=== PATIENT | male | born 1955 | race Caucasian/White ===

== ENCOUNTER 2020-12-10 21:48 | Emergency (ER) | payer MEDICARE ==
[~2020-12-10] VITALS: Ht 180.3 cm; Wt 45.5 kg
[~2020-12-10 21:48] MED LIST: ASPI325T OR; DIABETA; EFFE75CA75 OR; FLEXERIL OR; FLEXERIL PO; GEMF600T OR; GLUC500T OR; GLYB1TAB29 OR; HYDR25TA6 OR; INSULANT SC; INSULIN LANTUS SUBQ; KEPPRA OR; KEPPRA PO; LEVETIRACETAM PO; LISI40TA OR; LOPI600T OR; NOVALOG INSULIN; POTA-77 PO; POTA20TA2 OR; RISP2TAB12 OR; SERO1TAB OR; VARDENAFIL PO; VENLAFAXINE PO; VIT D 4000 PO
[2020-12-10 23:29] LABS: BASO % 0.4 % (0.0-1.0); EOS % 0.5 % (0.0-3.0); HEMATOCRIT 43.7 % (42.0-52.0); HEMOGLOBIN 15.8 g/dl (13.5-17.5); LYMPH # 1.3 10^3/uL (1.5-5.0); LYMPH % 16.1 % (24.0-44.0); MEAN CORPUSCULAR HEMOGLOBIN 32.4 pg (27.0-33.0); MEAN CORPUSCULAR HGB CONC 36.2 g/dl (32.0-36.5); MEAN CORPUSCULAR VOLUME 89.5 fl (80.0-96.0); MONO # 0.9 10^3/uL (0.0-0.8); MONO % 11.1 % (2.0-8.0); NEUTROPHILS # 5.8 10^3/uL (1.5-8.5); NEUTROPHILS % 71.5 % (36.0-66.0); PLATELET COUNT, AUTOMATED 160 10^3/uL (150-450); RED BLOOD COUNT 4.88 10^6/uL (4.30-6.10); WHITE BLOOD COUNT 8.1 10^3/uL (4.0-10.0)
[2020-12-11 01:19] LABS: BLOOD UREA NITROGEN 60 MG/DL (7-18); CALCIUM LEVEL 8.2 MG/DL (8.8-10.2); CARBON DIOXIDE LEVEL 20 MEQ/L (21-32); CHLORIDE LEVEL 98 MEQ/L (98-107); CK-MB VALUE MASS 7.8 NG/ML (<3.6); CPK CREATINE PHOSPHOKINASE 742 U/L (39-308); CREATININE FOR GFR 2.17 MG/DL (0.70-1.30); GLOMERULAR FILTRATION RATE 32.6 (>49); GLUCOSE, FASTING 241 MG/DL (70-100); MB/CK RELATIVE INDEX 1.05 (< OR =4); POTASSIUM SERUM 5.5 MEQ/L (3.5-5.1); SODIUM LEVEL 130 MEQ/L (136-145); TROPONIN I < 0.02 NG/ML (< 0.10)
[2020-12-11] MEDS ORDERED: NS 1,000 ML IV ONE (01:25)
[2020-12-11 04:15] VITALS: BP 124/60
--- NOTE | 2020-12-11 16:59 | ECGEPIP ---
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
== END 2020-12-11 09:09 | disposition home or self-care (01) ==
LOC: M ED 21:48
DX: G89.29 Other chronic pain (principal); M54.5 Low back pain; E11.9 Type 2 diabetes mellitus without complications; N18.9 Chronic kidney disease, unspecified; Z79.899 Other long term (current) drug therapy; Z79.82 Long term (current) use of aspirin; F17.210 Nicotine dependence, cigarettes, uncomplicated

== ENCOUNTER 2021-02-23 14:25 | Inpatient (IN) | payer MEDICARE ==
[~2021-02-23] VITALS: Ht 182.9 cm; Wt 86.9 kg
[2021-02-23] MEDS ORDERED: NS 1,000 ML IV SCH (14:50)
--- NOTE | 2021-02-23 15:06 | REP ---
INDICATION: Altered Mental Status COMPARISON: 03/21/2007 TECHNIQUE: Axial noncontrast images from the skull base to the thoracic inlet with coronal reformations. This CT examination was performed using the following dose reduction techniques: Automated exposure control, adjustment of mA and/or kv according to the patient's size, and use of iterative reconstruction technique. FINDINGS: Atrophy with periventricular leukomalacia and microvascular ischemic changes are appreciated. The ventricles and sulci are symmetric. Juarez-white differentiation is maintained. There is no evidence for acute intracranial hemorrhage, mass/mass effect, pathology or infarction. No extra-axial fluid collection. Calvarium is intact. Paranasal sinuses and mastoid air cells are clear. IMPRESSION: Atrophy and microvascular ischemic changes. No acute intracranial hemorrhage, infarction, or mass/mass effect. <Electronically signed by Aayush Corrigan > 02/23/21 [id number]
[2021-02-23 15:35] LABS: VENOUS BASE EXCESS -6.7 (-2.0-2.0); VENOUS HCO3 19.6 MEQ/L (23.0-27.0); VENOUS O2 SATURATION 48.9 % (60.0-80.0); VENOUS PARTIAL PRESSURE CO2 42.1 mmHg (38.0-50.0); VENOUS PARTIAL PRESSURE O2 29.7 mmHg (30.0-50.0); VENOUS PH 7.286 UNITS (7.330-7.430); VENOUS STANDARD HCO3 17.9 MEQ/L; VENOUS TOTAL CO2 20.9 MEQ/L (24.0-28.0)
[2021-02-23 15:39] LABS: HEMATOCRIT 45.3 % (42.0-52.0); HEMOGLOBIN 15.5 g/dl (13.5-17.5); MEAN CORPUSCULAR HGB CONC 34.2 g/dl (32.0-36.5); MEAN CORPUSCULAR VOLUME 90.6 fl (80.0-96.0); PLATELET COUNT, AUTOMATED 277 10^3/uL (150-450)
[2021-02-23] MEDS ORDERED: cefTRIAXone SOD 2 GM in D5W MINI-BAG PLUS 50 ML IV ONE (15:45)
--- NOTE | 2021-02-23 15:46 | REP ---
INDICATION: fall COMPARISON: None. TECHNIQUE: Axial noncontrast images from the skull base to the thoracic inlet with coronal and sagittal re-formations This CT examination was performed using the following dose reduction techniques: Automated exposure control, adjustment of mA and/or kv according to the patient's size, and use of iterative reconstruction technique. FINDINGS: Alignment and lordosis maintained. No acute fracture/compression injury or subluxation. Posterior elements and spinous processes are intact. Advanced multilevel degenerative changes include endplate sclerosis, disc space narrowing, osteophytosis and facet hypertrophy. Spinal canal appears patent. Paravertebral soft tissues are grossly normal IMPRESSION: 1. No evidence for acute fracture/compression injury or subluxation. 2. Advanced multilevel degenerative spondylosis. <Electronically signed by Aayush Corrigan > 02/23/21 2175
[2021-02-23 16:02] LABS: ATYPICAL LYMPH 3 % (0-5); LYMPHOCYTES 6 % (16-44); MONOCYTES 7 % (0-5); NEUTROPHILS 82 % (28-66); OSMOLALITY SERUM 324 MOSM/KG (280-301)
[2021-02-23 16:04] LABS: PLATELET ESTIMATE NORMAL (NORMAL); TOXIC VACUOLATION 1+
[2021-02-23 16:07] LABS: RSV AMPLIFICATION NEGATIVE (NEGATIVE)
[2021-02-23 16:25] LABS: ACETAMINOPHEN LEVEL < 2.0 UG/ML (10.0-30.0); ALT/SGPT 34 U/L (12-78); BILIRUBIN,DIRECT 0.2 MG/DL (0.0-0.2); BILIRUBIN,TOTAL 0.5 MG/DL (0.2-1.0); BLOOD UREA NITROGEN 50 MG/DL (7-18); CALCIUM LEVEL 9.6 MG/DL (8.8-10.2); CARBON DIOXIDE LEVEL 22 MEQ/L (21-32); CHLORIDE LEVEL 99 MEQ/L (98-107); CK-MB VALUE MASS 4.2 NG/ML (<3.6); CPK CREATINE PHOSPHOKINASE 1650 U/L (39-308); CREATININE FOR GFR 2.83 MG/DL (0.70-1.30); ETHYL ALCOHOL (ETHANOL) < 0.003 % (0.000-0.010); GLUCOSE, FASTING 627 MG/DL (70-100); MB/CK RELATIVE INDEX 0.25 (< OR =4); POTASSIUM SERUM 4.6 MEQ/L (3.5-5.1); SALICYLATE LEVEL 3.5 MG/DL (5.0-30.0); SODIUM LEVEL 133 MEQ/L (136-145); TOTAL PROTEIN 7.4 GM/DL (6.4-8.2); TROPONIN I 0.11 NG/ML (< 0.10)
[2021-02-23] MEDS ORDERED: NS IV ONE (16:35)
[2021-02-23] MEDS ORDERED: INSULIN REGULAR IN 0.9 % NACL 100 UNIT in IV 1 EA IV SCH ×2 (16:40)
[2021-02-23] MEDS ORDERED: INSULIN IV RATE CHANGE DOCUMENTATION ML/HR XX SCH (16:40)
[2021-02-23] MEDS ORDERED: METOPROLOL 5 MG/5 ML VIAL IV STA (16:54)
--- NOTE | 2021-02-23 17:06 | REP ---
INDICATION: leukocytosis COMPARISON: 06/15/2010 TECHNIQUE: Portable AP view of the chest FINDINGS: The mediastinum and cardiac silhouette are stable and within normal limits for portable technique. The lung soliman demonstrate chronic appearing changes without acute consolidation, effusion, or pneumothorax. Skeletal structures are intact. IMPRESSION: No acute cardiopulmonary process appreciated. <Electronically signed by Aayush Corrigan > 02/23/21 1427
[2021-02-23 17:56] LABS: AMPHETAMINES LEVEL URINE NEGATIVE (NEGATIVE); BARBITURATES URINE NEGATIVE (NEGATIVE); BENZODIAZEPINES URINE NEGATIVE (NEGATIVE); CANNABINOIDS URINE NEGATIVE (NEGATIVE); COCAINE METABOLITE URINE NEGATIVE (NEGATIVE); METHADONE URINE NEGATIVE (NEGATIVE); OPIATES URINE NEGATIVE (NEGATIVE); PHENCYCLIDINE URINE NEGATIVE (NEGATIVE)
--- NOTE | 2021-02-23 18:17 | REPVR ---
PROCEDURE INFORMATION: Exam: CT Chest Without Contrast; Diagnostic Exam date and time: 02/23/2021 5:39 PM Age: 65 years old Clinical indication: Other: Leukocytosis TECHNIQUE: Imaging protocol: Diagnostic computed tomography of the chest without contrast. Radiation optimization: All CT scans at this facility use at least one of these dose optimization techniques: automated exposure control; mA and/or kV adjustment per patient size (includes targeted exams where dose is matched to clinical indication); or iterative reconstruction. COMPARISON: 1. CR Chest, 1 view 2021-02-23 16:[address] Spine,cervical w/o contrast 2021-02-23 15:29 FINDINGS: Lungs: Minimal right lung base subsegmental atelectasis. Pleural spaces: Unremarkable. No pneumothorax. No pleural effusion. Heart: Unremarkable. No cardiomegaly. No pericardial effusion. Mediastinal space: Prominent esophageal thickening, correlate. Aorta: Unremarkable. No aortic aneurysm. Lymph nodes: Unremarkable. No enlarged lymph nodes. Bones/joints: Unremarkable. No acute fracture. Soft tissues: Unremarkable. IMPRESSION: Prominent esophageal thickening, correlate. Electronically signed by: Luis Antonio Douglas On 02/23/2021 18:17:06 PM
--- NOTE | 2021-02-23 18:20 | REPVR ---
PROCEDURE INFORMATION: Exam: CT Abdomen And Pelvis Without Contrast Exam date and time: 02/23/2021 5:39 PM Age: 65 years old Clinical indication: Other: Leukocytosis TECHNIQUE: Imaging protocol: Computed tomography of the abdomen and pelvis without contrast. Radiation optimization: All CT scans at this facility use at least one of these dose optimization techniques: automated exposure control; mA and/or kV adjustment per patient size (includes targeted exams where dose is matched to clinical indication); or iterative reconstruction. COMPARISON: CR Chest, 1 view 2021-02-23 16:54 FINDINGS: Limitations: Motion artifact does moderately limit the sensitivity of this examination. Artifact related to patient's arm position limits evaluation. Liver: Normal. No mass. Gallbladder and bile ducts: Normal. No calcified stones. No ductal dilation. Pancreas: Normal. No ductal dilation. Spleen: Normal. No splenomegaly. Adrenal glands: Normal. No mass. Kidneys and ureters: Moderate right hydroureter and hydronephrosis. Right perinephric stranding and renal swelling. Correlate for accompanying cystitis and pyelonephritis. Stomach and bowel: Unremarkable. No obstruction. No mucosal thickening. Appendix: No evidence of appendicitis. Intraperitoneal space: Unremarkable. No free air. No significant fluid collection. Retroperitoneal space: Mild stranding extending along the right retroperitoneum and ureter. Vasculature: Ill-defined soft tissue adjacent to the right internal iliac artery measuring 4 x 2.2 x 4.5 cm, (series 206, image 74) consider follow-up. Lymph nodes: Question adenopathy or other lesion or neoplasm. Urinary bladder: 2 mm dependent calculus in the bladder, likely recently passed. Reproductive: Unremarkable as visualized. Bones/joints: Right hip ORIF. Soft tissues: Unremarkable. IMPRESSION: 1. Moderate right hydroureter and hydronephrosis. Right perinephric stranding and renal swelling. 2 mm dependent calculus in the bladder, likely recently passed. Correlate for accompanying cystitis and pyelonephritis. 2. Ill-defined soft tissue adjacent to the right internal iliac artery measuring 4 x 2.2 x 4.5 cm, (series 206, image 74) consider follow-up. Question adenopathy or other lesion or neoplasm. Electronically signed by: Luis Antonio Douglas On 02/23/2021 18:20:29 PM
[2021-02-23] MEDS ORDERED: GLUCOSE 4GM CHEW TABLET PO PRN (18:45)
[2021-02-23] MEDS ORDERED: GLUCAGON INJ 1MG VIAL SC PRN (18:45)
[2021-02-23] MEDS ORDERED: DEXTROSE 50% 50 ML SYRINGE IV PRN (18:45)
[2021-02-23] MEDS ORDERED: ATIV1TAB10 PO (19:14)
[2021-02-23] MEDS ORDERED: POTA10TA17 PO (19:14)
[2021-02-23] MEDS ORDERED: BAYE325T12 PO (19:14)
[2021-02-23] MEDS ORDERED: GABA-282 PO (19:14)
[2021-02-23] MEDS ORDERED: FENO145T7 PO (19:14)
[2021-02-23] MEDS ORDERED: CYCL5TAB PO (19:14)
[2021-02-23] MEDS ORDERED: LISI40TA4 PO (19:14)
[2021-02-23] MEDS ORDERED: DOCU100C16 PO (19:14)
[2021-02-23] MEDS ORDERED: OZEM2INJ SC (19:14)
[2021-02-23] MEDS ORDERED: METF10004 PO (19:14)
[2021-02-23] MEDS ORDERED: KEPP1TAB PO (19:14)
[2021-02-23] MEDS ORDERED: ATOR40TA75 PO (19:14)
[2021-02-23] MEDS ORDERED: OMEGCAP4 PO (19:14)
[2021-02-23] MEDS ORDERED: LANTINJ4 SC (19:14)
[2021-02-23] MEDS ORDERED: VENL150C43 PO (19:14)
[2021-02-23] MEDS ORDERED: BUSP10TA PO (19:14)
[2021-02-23] MEDS ORDERED: HOME MED LIST COMPLETE! XX SCH (19:15)
[2021-02-23] MEDS ORDERED: LEVEMIR (INSULIN DETEMIR) 1 UNITS/0.01ML SC ONE (19:30)
[2021-02-23] MEDS ORDERED: LORazepam 0.5 MG TAB PO PRN (19:35)
[2021-02-23] MEDS ORDERED: THIAMINE 200MG 2ML VIAL IV ONE (19:35)
[2021-02-23] MEDS: NS 1,000 ML IV SCH (19:42)
--- NOTE | 2021-02-23 19:48 | HPEPDOC ---
General Date of Admission Feb 23, 2021 at 18:45 Date of Service: Feb 23, 2021 Other Providers [facility] Attending Physician: Rene Browne MD Chief Complaint The patient is a 65-year-old male admitted with a reason for visit of Altered Mental Status,Uncontrolled Diabetes Type 2. Source: RN/, Old records Exam Limitations: Clinical conditions (the patient is unable to give cogent verbal response) Timing/Duration: Unsure Associated Symptoms: Unobtainable History of Present Illness This history is limited by the patient's current mental status. This history was patched together from EMS, discussions with the ER physician, and review of his old records. Mr. Ba lives [place] community and has apparently been having some difficulty with his IADLs recently as EMS has had to be dispatched to his house several times to help with things like falls. Per his neighbor he was on a table trying to adjust a sun umbrella yesterday when he fell off the table. He was able to get up and he called and spoke to someone (maybe a relative) about this and said he was going to bed at 3 pm the afternoon before admission. His neighbors didn't see him around his apartment today, so by this afternoon they called and asked EMS to do a safety check. He was found in his bed responsive, but not coherent. He was brought to the [facility] ER for further evaluation and treatment. There was a concern raised at one point that he may be taking too much ga bapentin or Flexeril, but it is not clear who raised this concern or if there is any evidence to support this concern. Home Medications Scheduled Aspirin (Aspirin) 325 Mg Tablet, 325 MG PO DAILY, (Reported) Atorvastatin Calcium (Atorvastatin Calcium) 40 Mg Tablet, 40 MG PO DAILY, (Reported) Buspirone HCl (Buspirone HCl) 10 Mg Tablet, 20 MG PO TID, (Reported) Fenofibrate Nanocrystallized (Fenofibrate) 145 Mg Tablet, 145 MG PO DAILY, (Reported) Gabapentin (Gabapentin) 300 Mg Capsule, 600 MG PO TID, (Reported) Insulin Glargine,Hum.rec.anlog (Lantus Solostar) 100 Unit/1 Ml Insuln.pen, 30 UNITS SC QHS, (Reported) Levetiracetam (Keppra) 500 Mg Tablet, 500 MG PO BID, (Reported) Lisinopril (Lisinopril) 40 Mg Tablet, 40 MG PO DAILY, (Reported) Metformin HCl (Metformin HCl) 1,000 Mg Tablet, 1,000 MG PO BID, (Reported) Bells-3/Dha/Epa/Fish Oil (Bells-3 Fish Oil 1,000 mg Sfgl) 1,000 Mg Capsule, 2,000 MG PO DAILY, (Reported) Potassium Chloride (Potassium Chloride) 10 Meq Tab.er.prt, 10 MEQ PO DAILY, (Reported) Semaglutide (Ozempic) 0.25 Mg/0.2 Ml Pen.injctr, 0.25 MG SC 1XWK, (Reported) 0.25 MG WEEKLY FOR 4 WEEKS THEN INCREASE TO 0.5MG WEEKLY Venlafaxine HCl (Venlafaxine HCl ER) 150 Mg Cap.er.24h, 150 MG PO DAILY, (Reported) Scheduled PRN Cyclobenzaprine HCl (Cyclobenzaprine HCl) 5 Mg Tablet, 5 MG PO Q8H PRN for MUSC LE SPASMS, (Reported) Docusate Sodium (Docusate Sodium) 100 Mg Capsule, 100 MG PO BID PRN for CONSTIPATION, (Reported) Lorazepam (Ativan) 0.5 Mg Tablet, 0.5 MG PO BID PRN for ANXIETY, (Reported) Allergies Coded Allergies: simvastatin (Verified Allergy, Unknown, 02/23/21) Past Medical History Medical History (This history is derived from an admission done in 2010 and is probably not complete, however, it is the best information we have right now). 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 3) seizure disorder 4) history of alcohol abuse 5) history of tobacco abuse Surgical History Repair of right femur fracture Family History Father had emphysema and diabetes Social History * Smoker: other (we know he smoked in the past they don't know whether he is still or not.) Alcohol: other (he notes he had a history of heavy alcohol use in the past, I don't know whether he currently does or not) He lives in some sort of jail housing [facility] History Current/History of A-Fib/PAF?: No Current PO Anticoag Therapy: No Review of Systems Other systems Unobtainable Physical Examination General Exam: Positive: No Acute Distress (laying calmly in an ER stretcher when I entered the room); Negative: Alert, Cooperative Eye Exam: Positive: PERRLA, EOMI; Negative: Sclera icteric, Ptosis ENT Exam: Positive: Mucous membr. moist/pink; Negative: Atraumatic Neck Exam: Positive: Supple; Negative: Lymphadenopathy Chest Exam: Positive: Clear to auscultation, Diminished Heart Exam: Positive: Tachycardic, Regular Rhythm (difficult to tell based on the rate) Telemetry: Positive: Tachycardia (was in the 140s on admission, now in the 120s after hydration) Abdomen Exam: Positive: BS Hypoactive, Soft; Negative: Tenderness, Hepatospenomegaly Extremity Exam: Positive: Other (venous stasis dermatitis the lower legs bilaterally and some abrasions with dry eschar noted on his feet (present on admission)); Negative: Edema, Tenderness Skin Exam: Negative: Breakdown Neuro Exam: Positive: Normal Tone; Negative: Normal Speech Psych Exam: Negative: Mental status NL, Memory Intact, Oriented x 3 Vital Signs Vital Signs Date Time Temp Pulse Resp B/P (MAP) Pulse Ox O2 Delivery O2 Flow Rate FiO2 02/23/21 18:45 127 28 147/71 (96) 97 Nasal Cannula 2.0 02/23/21 15:00 97.7 Laboratory Data Labs 24H Laboratory Tests 2 02/23/21 15:21: Bedside Glucose (Misc Panel) 573*H 02/23/21 15:22: Neutrophils (%) (Auto) , Nucleated Red Blood Cells % (auto) 0.0, Neutrophils 82H, Band Neutrophils 2, Lymphocytes (Manual) 6L, Monocytes (Manual) 7H, Atypical Lymphocytes 3, Toxic Vacuolation 1+, Platelet Estimate NORMAL, Blood Gas Bicarbonate Standard 17.9, Venous Blood pH 7.286L, Venous Blood Partial Pressure CO2 42.1, Venous Blood Partial Pressure O2 29.7L, Venous Blood Total Carbon Dioxide 20.9L, Venous Blood HCO3 19.6L, Venous Blood Oxygen Saturation 48.9L, Venous Blood Base Excess -6.7L, Anion Gap 12, Glomerular Filtration Rate 24.0L, Osmolality 324H, Lactic Acid Level 4.6*H, Calcium Level 9.6, Total Bilirubin 0.5, Direct Bilirubin 0.2, Aspartate Amino Transf (AST/SGOT) 47H, Alanine Aminotransferase (ALT/SGPT) 34, Alkaline Phosphatase 114, Ammonia < 10, Total Creatine Kinase 1650H, Creatine Kinase MB 4.2H, Creatine Kinase MB Relative Index 0.25, Troponin I 0.11H, Total Protein 7.4, Albumin 3.0L, Albumin/Globulin Ratio 0.7, Thyroid Stimulating Hormone (TSH) 2.280, Salicylates Level 3.5L, Urine Opiates Screen NEGATIVE, Urine Methadone Screen NEGATIVE, Acetaminophen Level < 2.0L, Urine Barbiturates Screen NEGATIVE, Urine Phencyclidine Screen NEGATIVE, Urine Amphetamines Screen NEGATIVE, Urine Benzodiazepines Screen NEGATIVE, Urine Cocaine Metabolite Screen NEGATIVE, Urine Cannabinoids Screen NEGATIVE, Ethyl Alcohol Level < 0.003, Coronavirus (COVID- 19)(PCR) NEGATIVE, Influenza Type A (RT-PCR) NEGATIVE, Influenza Type B (RT-PCR) NEGATIVE, Respiratory Syncytial Virus (PCR) NEGATIVE 02/23/21 17:19: Urine Color YELLOW, Urine Appearance CLOUDYH, Urine pH 5.0, Urine Specific [place] 1.020, Urine Protein 3+H, Urine Glucose (UA) 3+H, Urine Ketones NEGATIVE, Urine Blood 3+H, Urine Nitrite NEGATIVE, Urine Bilirubin NEGATIVE, Ur ine Urobilinogen 0.2, Urine Leukocyte Esterase 2+H, Urine WBC (Auto) TNTCH, Urine RBC (Auto) 7H, Urine Hyaline Casts (Auto) 0, Urine Bacteria (Auto) 1+H, Urine Squamous Epithelial Cells 0, Urine Mucus (Auto) SMALL, Urine Sperm (Auto) 02/23/21 17:42: Bedside Glucose (Misc Panel) 571*H 02/23/21 19:02: Bedside Glucose (Misc Panel) 449H CBC/BMP Laboratory Tests 02/23/21 15:22 Microbiology Microbiology 02/23/21 Urine Culture, Received Pending 02/23/21 Blood Culture, Received Pending 02/23/21 Blood Culture, Received Pending Problems (1) Altered mental status Status: Acute Problem Text: I am honestly not sure what the etiology of his altered mental status is. It could be related to overuse of medications like gabapentin or cyclobenzaprine after a fall, but we're not sure. At this point I will admit him for careful monitoring in the hospital and we'll not continue his oral medications (as it does not seem safe to do so). If this is medication related, the problem might correct itself soon. If not, we will have to follow any new symptoms may develop. (2) Diabetes type 2, uncontrolled Status: Chronic Problem Text: His diabetes is quite uncontrolled today. Apparently he is in the middle of starting a new weekly medication (probably Trulicity or Ozempic), but hasn't yet started it. He was started on insulin drip in the ER to see if we could control his blood glucose level. He does not have ketourea or an anion gap. Therefore I will change him to a twice daily dose of his basal insulin with insulin sliding scale. His usual dose of basal insulin at home is 30 once daily, so we may need to change back to this once his blood glucose levels fall to around 250. (3) Hydronephrosis Status: Acute Problem Text: It appears that he has an acute right-sided hydronephrosis which is probably secondary to a recent ureterolithiasis with a couple of stones noted in the bladder. If the stones have in fact passed through the ureters the situation should improve quickly. He has been started on IV antibiotics in case he is heading toward a sepsis syndrome related to this issue. Blood cultures and urine cultures have already been taken and are pending. We will continue to monitor. (4) Tachycardia Status: Acute Problem Text: I suspect this is physiologic related to hypovolemia from a large glucoresis related to his uncontrolled diabetes. There is certainly the possibility that he has an infection causing a further physiologic elevation of his heart rate. Right now I don't think is an intrinsic tachyarrhythmia, but we need to keep that as a possibility. He will be monitored on telemetry. (5) Lactic acid acidosis Status: Acute Problem Text: This is probably related to hypoperfusion secondary to hypovolemia tertiary to uncontrolled diabetes. It also could be related to a early sepsis syndrome from pyelonephritis. The rationale for this would be the 2 small kidney stones noted in his bladder or the right sided hydronephrosis. He has been given a large bolus of IV fluid in the emergency department as well as an initial dose of 2 g of Rocephin intravenously. I will continue Rocephin every 24 hours and we will continue to hydrate him. We will trend his lactic acid level per hospital protocol. (6) Seizure disorder Problem Text: He has a known history of a seizure disorder. We don't know whether he is currently taking his seizure medications, but [facility] It's possible that problem related to his seizure disorder or his seizure medications could underlie his altered mental status. Unfortunately it's not safe to give him by mouth medications at this time. I did prescribe IV lorazepam for anxiety and agitation. (7) Alcohol abuse, unspecified Problem Text: We know he has a history of alcohol abuse we have no idea whether this is an active issue or not. I gave him a dose of thiamine while here just to be safe. I also ordered IV lorazepam for anxiety and agitation. I don't want to initiate the CIWA protocol at this time because I do not know whether he has been drinking or not. We will have to continue to monitor him carefully. (8) Fall Status: Acute Problem Text: He reportedly fell off the table yesterday. We are not able to assess any acute injury based on physical examination and rather extensive radiographic studies done through the ER. We will have to wait until he becomes more lucid to tell us if he hurts somewhere so we can further investigate that area. Plan / VTE VTE Prophylaxis Ordered?: Yes (Bettye, diana, sequentials) Plan Plan We do not have any idea what his advanced directives are, nor if he has a healthcare proxy. At this point in time we will move forward with the state default of FULL CODE and see if we can find more information as time goes on. Rene Browne MD Feb 23, 2021 19:48
[2021-02-23] MEDS ORDERED: NS 1,000 ML IV ONE (20:05)
[2021-02-23] MEDS ORDERED: ACETAMINOPHEN 650 MG SUPP PR ONE (20:10)
--- NOTE | 2021-02-23 20:13 | IPNPDOC ---
Text Note Date of Service The patient was seen on 02/23/21. NOTE Subjective: Asked by nurse to assess patient he is becoming more tachypneic and rectal temperature was 104.8. Objective: on exam patient was tachypneic rate ~30. on monitor: HR 132. BP 122/71. Saturating at 98% on 2L oxygen by NC He is responsive to sound able to be briefly directable able to mumble back when asked questions Appears dehydrated. Lungs are clear to auscultation; no crackles or wheezing. No LE edema. Dry mucus membranes. Assessment/plan: # Tachypnea: likely from dehydration and sepsis. Fluid bolus. Close monitoring in ICU. # Sepsis: probably from UTI. Transfer to ICU. Repeat Lactate, CBC, CMP, CPK. NS bolus. Increased IVF rate to 200. Broaden Abx to IV Vanc and Zosyn. Tylenol suppository for fever. A Rhonda Hospitalist VSReece, I+O VS, Reece, I+O Laboratory Tests 02/23/21 15:22 Vital Signs Date Time Temp Pulse Resp B/P (MAP) Pulse Ox O2 Delivery O2 Flow Rate FiO2 02/23/21 19:46 104.8 134 94 Nasal Cannula 2.0 02/23/21 19:31 52 144/86 (105) ANYA SHARP MD Feb 23, 2021 20:13
[2021-02-23 20:17] LABS: VENOUS HCO3 18.7 MEQ/L (23.0-27.0); VENOUS O2 SATURATION 91.9 % (60.0-80.0); VENOUS PARTIAL PRESSURE CO2 31.3 mmHg (38.0-50.0); VENOUS PARTIAL PRESSURE O2 65.8 mmHg (30.0-50.0); VENOUS PH 7.394 UNITS (7.330-7.430); VENOUS STANDARD HCO3 20.2 MEQ/L; VENOUS TOTAL CO2 19.7 MEQ/L (24.0-28.0)
[2021-02-23 20:34] LABS: MAGNESIUM LEVEL 1.3 MG/DL (1.8-2.4); PHOSPHORUS LEVEL 3.3 MG/DL (2.5-4.9)
[2021-02-23] MEDS ORDERED: VANCOMYCIN HCL 1,000 MG, VIAL MATE ADAPTER 1 EACH in NS 250 ML IV ONE (21:00)
[2021-02-23] MEDS ORDERED: HumaLOG INSULIN (NovoLOG) PER UNIT SC SCH (21:00)
[2021-02-23 21:05] LABS: BASO # 0.1 10^3/uL (0.0-0.2); BASO % 0.4 % (0.0-1.0); EOS % 0.1 % (0.0-3.0); HEMATOCRIT 39.5 % (42.0-52.0); HEMOGLOBIN 13.8 g/dl (13.5-17.5); LYMPH % 5.6 % (24.0-44.0); MEAN CORPUSCULAR HEMOGLOBIN 30.9 pg (27.0-33.0); MEAN CORPUSCULAR HGB CONC 34.9 g/dl (32.0-36.5); MEAN CORPUSCULAR VOLUME 88.6 fl (80.0-96.0); MONO # 1.2 10^3/uL (0.0-0.8); MONO % 6.6 % (2.0-8.0); NEUTROPHILS # 15.4 10^3/uL (1.5-8.5); NEUTROPHILS % 86.4 % (36.0-66.0); PLATELET COUNT, AUTOMATED 248 10^3/uL (150-450); RED BLOOD COUNT 4.46 10^6/uL (4.30-6.10); WHITE BLOOD COUNT 17.8 10^3/uL (4.0-10.0)
--- NOTE | 2021-02-23 21:25 | ECGEPIP ---
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
[2021-02-23 21:41] LABS: ALBUMIN 2.5 GM/DL (3.2-5.2); BILIRUBIN,TOTAL 0.3 MG/DL (0.2-1.0); CALCIUM LEVEL 8.6 MG/DL (8.8-10.2); CREATININE FOR GFR 2.63 MG/DL (0.70-1.30); GLOMERULAR FILTRATION RATE 26.1 (>49); POTASSIUM SERUM 4.1 MEQ/L (3.5-5.1); TOTAL PROTEIN 6.7 GM/DL (6.4-8.2)
[2021-02-23] MEDS ORDERED: VANCOMYCIN HCL 750 MG, VIAL MATE ADAPTER 1 EACH in NS 250 ML IV ONE (22:00)
[2021-02-23 22:12] VITALS: BP 105/59
[2021-02-23 23:00] VITALS: BP 105/56
[2021-02-23] MEDS: ACETAMINOPHEN 650 MG SUPP PR PRN (23:42)
[2021-02-24] VITALS (19 sets, daily range): BP systolic 93–155; BP diastolic 49–107
[2021-02-24] MEDS: PIPERACILLIN/TAZOBACTAM SOD 4.5 GM in D5W MINI-BAG PLUS 50 ML IV SCH ×4 (00:07→22:50)
[2021-02-24] MEDS: HumaLOG INSULIN (NovoLOG) PER UNIT SC SCH ×6 (00:15→20:58)
[2021-02-24] MEDS: ACETAMINOPHEN 650 MG SUPP PR PRN ×2 (04:09→08:50)
[2021-02-24 04:18] LABS: HEMATOCRIT 39.4 % (42.0-52.0); HEMOGLOBIN 13.5 g/dl (13.5-17.5); MEAN CORPUSCULAR HEMOGLOBIN 31.1 pg (27.0-33.0); MEAN CORPUSCULAR HGB CONC 34.3 g/dl (32.0-36.5); MEAN CORPUSCULAR VOLUME 90.8 fl (80.0-96.0); PLATELET COUNT, AUTOMATED 231 10^3/uL (150-450); RED BLOOD COUNT 4.34 10^6/uL (4.30-6.10); WHITE BLOOD COUNT 16.5 10^3/uL (4.0-10.0)
[2021-02-24 04:39] LABS: LYMPHOCYTES 8 % (16-44); MONOCYTES 6 % (0-5); NEUTROPHILS 80 % (28-66); PLATELET ESTIMATE NORMAL (NORMAL)
[2021-02-24 04:41] LABS: ANISOCYTOSIS 1+
[2021-02-24 04:58] LABS: ALBUMIN 2.2 GM/DL (3.2-5.2); BILIRUBIN,TOTAL 0.3 MG/DL (0.2-1.0); CALCIUM LEVEL 8.1 MG/DL (8.8-10.2); CREATININE FOR GFR 2.36 MG/DL (0.70-1.30); GLOMERULAR FILTRATION RATE 29.5 (>49); TOTAL PROTEIN 6.2 GM/DL (6.4-8.2); URIC ACID 7.2 MG/DL (3.5-7.2)
[2021-02-24] MEDS: NS 1,000 ML IV SCH ×2 (05:51→18:25)
[2021-02-24 06:10] LABS: ABG BASE EXCESS -5.4 (-2.0-2.0); ABG HCO3 17.3 MEQ/L (22.0-26.0); ABG O2 SATURATION 94.8 % (95.0-99.0); ABG PARTIAL PRESSURE CO2 26.4 mmHg (35.0-45.0); ABG PARTIAL PRESSURE O2 73.4 mmHg (75.0-100.0); ABG TOTAL CO2 18.1 MEQ/L (23.0-31.0); ABG pH (ARTERIAL) 7.434 UNITS (7.350-7.450)
[2021-02-24] MEDS ORDERED: HumaLOG INSULIN (NovoLOG) PER UNIT SC SCH ×2 (07:30→12:10)
[2021-02-24] MEDS: ENOXAPARIN 40MG/0.4ML SYRINGE (J1650 PER 10MG) SC SCH (08:50)
[2021-02-24] MEDS: OMEGA-3 1000MG CAPSULE PO SCH (09:00)
[2021-02-24] MEDS: levETIRAcetam 250MG TABLET (KEPPRA) PO SCH ×2 (09:00→20:58)
[2021-02-24] MEDS ORDERED: LEVEMIR (INSULIN DETEMIR) 1 UNITS/0.01ML SC SCH (09:00)
[2021-02-24] MEDS ORDERED: DOCUSATE SODIUM 100MG CAPSULE PO PRN (12:10)
[2021-02-24] MEDS: ASPIRIN 325 MG TAB PO SCH (14:07)
[2021-02-24] MEDS: ATORVASTATIN 20 MG TAB PO SCH (14:07)
[2021-02-24] MEDS: VENLAFAXINE **XR** 75MG CAPSULE PO SCH (14:07)
[2021-02-24] MEDS: lisinopriL 40 MG TAB PO SCH (14:08)
[2021-02-24] MEDS: FENOFIBRATE 145 MG TAB (TRICOR) PO SCH (14:08)
[2021-02-24] MEDS: POTASSIUM CHLORIDE 10 MEQ SR TABLET PO SCH (14:08)
--- NOTE | 2021-02-24 14:17 | REP ---
INDICATION: monitor hydronephrosis, rigors despite broad spectrum treatm COMPARISON: CT dated 02/23/2021 TECHNIQUE: Real time singh scale ultrasound examination using curved array transducer. FINDINGS: Right kidney measures 16.5 x 7.2 x 7.2 cm with very minimal central renal fullness without significant hydronephrosis appreciated. No nephrolithiasis, cystic or renal mass lesion. Left kidney measures 14.5 x 5.0 x 6.4 cm and includes 1.9 x 1.4 x 2.1 cm midpole cyst without hydronephrosis, nephrolithiasis, or mass lesion. Fields catheter identified in the bladder. IMPRESSION: Mild fullness to the right renal collecting system without significant hydronephrosis. Findings appear improved when correlated with recent CT. <Electronically signed by Aayush Corrigan > 02/24/21 [id number]
[2021-02-24] MEDS: ACETAMINOPHEN TAB 650MG DOSE (2X325MG) PO PRN ×2 (14:58→22:49)
[2021-02-24] MEDS ORDERED: cefTRIAXone SOD 1 GM in D5W MINI-BAG PLUS 50 ML IV SCH (16:00)
--- NOTE | 2021-02-24 17:00 | IPNPDOC ---
Subjective Date Seen The patient was seen on 02/24/21. Subjective Chief Complaint/HPI Mr. Ba spiked a high temperature up to 104.8 last night. His antibiotic coverage was broadened to include Zosyn and vancomycin. They had difficulty controlling his fever and ended up putting him on a cooling blanket. This has been slowly bring his temperature down over the course of the last few hours. Nursing reports that he is doing much better this morning and is somewhat responsive although his responses don't always make sense. He is able to eat and drink now they're requesting a diet for him as well as resuming some of his oral medications if possible. General: Reports: ROS Unobtainable (he is still not able to give a reliable history) Objective Physical Examination General Exam: Positive: Alert (but not focused on anything in particular), No Acute Distress (resting in his bed in the ICU) Eye Exam: Positive: PERRLA, EOMI; Negative: Sclera icteric, Ptosis ENT Exam: Positive: Mucous membr. moist/pink; Negative: Atraumatic Neck Exam: Positive: Supple; Negative: Lymphadenopathy Chest Exam: Positive: Clear to auscultation, Diminished Heart Exam: Positive: Tachycardic, Regular Rhythm, Normal S1, Normal S2 Telemetry: Positive: Tachycardia (generally around 110 now) Abdomen Exam: Positive: Normal bowel sounds, Soft; Negative: Tenderness, Hepatospenomegaly Extremity Exam: Positive: Other (venous stasis dermatitis the lower legs bilaterally and some abrasions with dry eschar noted on his feet); Negative: Edema, Tenderness Skin Exam: Negative: Breakdown Neuro Exam: Positive: Normal Tone; Negative: Normal Speech Psych Exam: Negative: Mental status NL, Memory Intact, Oriented x 3 (however he was oriented to person and place this morning (he thought it was August)) Assessment /Plan Problems (1) Altered mental status Status: Acute Problem Text: His mental status is improving, although it certainly not entir joelle normal yet. I still not certain of the etiology of the alteration, although I suspect it's infectious. He can start a diet and I will resume some of his oral medications, but I'm going to hold off on renewing any medications likely to alter his mental status. Until we can be more certain about the source of his altered mental status I do not want to confuse it with potentially sedating medications. (2) Hydronephrosis Status: Acute Problem Text: I suspect that the altered mental status is related to a sepsis syndrome that comes from a pyelonephritis that comes from ureterolithiasis that recently resolved. He is currently on Zosyn and vancomycin; antibiotics that were added when he had a high fever and tachypnea into the 50s last night. The Rocephin was stopped. There are blood and urine culture still pending. I ordered a renal ultrasound to further characterize the hydronephrosis of his right kidney. I'm hoping to see it is improving now that the stones are in the urinary bladder. (3) Diabetes type 2, uncontrolled Status: Chronic Problem Text: His blood glucose levels, while certainly not normal, are now in a more normal range. His blood glucose level this morning was in the mid 200s and I stopped the twice daily basal insulin and switched him back to his usual once daily basal insulin (30 units at night) with sliding scale coverage. We wi ll continue to monitor. (4) Tachycardia Status: Acute Response to Treatment: Improving Problem Text: His tachycardia is improving and I still suspect this is physiologic related to hypovolemia and sepsis. We will continue the telemetry. (5) Seizure disorder Problem Text: He has a known history of a seizure disorder. I restarted some of his seizure medications today. He still has the IV lorazepam for anxiety and agitation. (6) Alcohol abuse, unspecified Problem Text: We know he has a history of alcohol abuse we have no idea whether this is an active issue or not. He received thiamine on admission. He has the IV lorazepam as needed for anxiety and agitation. We will continue to monitor him carefully. (7) Fall Status: Acute Problem Text: He reportedly fell off the table the day before admission. We will have to wait until he becomes more lucid to tell us if he hurts somewhere so we can further investigate that area. In the meantime we will continue fall and seizure precautions. Plan/VTE VTE Prophylaxis Ordered?: Yes (Lovenox, teds, sequentials) VS, I&O, 24H, Fishbone Vital Signs/I&O Vital Signs Date Time Temp Pulse Resp B/P (MAP) Pulse Ox O2 Delivery O2 Flow Rate FiO2 02/24/21 16:00 100.0 109 24 93/51 (65) 95 Room Air 02/24/21 04:00 2.0 I&O- Last 24 Hours up to 6 AM 02/24/21 06:00 Intake Total 4714.6 ml Output Total 835 ml Balance 3879.6 ml Laboratory Data 24H LABS Laboratory Tests 2 02/23/21 17:19: Urine Color YELLOW, Urine Appearance CLOUDYH, Urine pH 5.0, Urine Specific [place] 1.020, Urine Protein 3+H, Urine Glucose (UA) 3+H, Urine Ketones NEGATIVE, Urine Blood 3+H, Urine Nitrite NEGATIVE, Urine Bilirubin NEGATIVE, Urine Urobilinogen 0.2, Urine Leukocyte Esterase 2+H, Urine WBC (Auto) TNTCH, Urine RBC (Auto) 7H, Urine Hyaline Casts (Auto) 0, Urine Bacteria (Auto) 1+H, Urine Squamous Epithelial Cells 0, Urine Mucus (Auto) SMALL, Urine Sperm (Auto) 02/23/21 17:42: Bedside Glucose (Misc Panel) 571*H 02/23/21 19:02: Bedside Glucose (Misc Panel) 449H 02/23/21 19:46: Immature Granulocyte % (Auto) 0.9, Neutrophils (%) (Auto) 86.4H, Lymphocytes (%) (Auto) 5.6L, Monocytes (%) (Auto) 6.6, Eosinophils (%) (Auto) 0.1, Basophils (%) (Auto) 0.4, Neutrophils # (Auto) 15.4H, Lymphocytes # (Auto) 1.0L, Monocytes # (Auto) 1.2H, Eosinophils # (Auto) 0.0, Basophils # (Auto) 0.1, Nucleated Red Blood Cells % (auto) 0.0, Anion Gap 12, Glomerular Filtration Rate 26.1L, Calcium Level 8.6L, Total Bilirubin 0.3, Aspartate Amino Transf (AST/SGOT) 48H, Alanine Aminotransferase (ALT/SGPT) 29, Alkaline Phosphatase 82, Total Creatine Kinase 1684H, Total Protein 6.7, Albumin 2.5L, Albumin/Globulin Ratio 0.6 02/23/21 19:58: Blood Gas Bicarbonate Standard 20.2, Venous Blood pH 7.394, Venous Blood Partial Pressure CO2 31.3L, Venous Blood Partial Pressure O2 65.8H, Venous Blood Total Carbon Dioxide 19.7L, Venous Blood HCO3 18.7L, Venous Blood Oxygen Saturation 91.9H, Venous Blood Base Excess -5.0L, Lactic Acid Followup at 4 Hours 4.3*H 02/23/21 21:09: Bedside Glucose (Misc Panel) 464H 02/24/21 00:06: Bedside Glucose (Misc Panel) 426H 02/24/21 03:59: Neutrophils (%) (Auto) , Nucleated Red Blood Cells % (auto) 0.0, Neutrophils 80H, Band Neutrophils 6, Lymphocytes (Manual) 8L, Monocytes (Manual) 6H, Anisocytosis 1+, Platelet Estimate NORMAL, Anion Gap 6L, Glomerular Filtration Rate 29.5L, Uric Acid 7.2, Calcium Level 8.1L, Total Bilirubin 0.3, Aspartate Amino Transf (AST/SGOT) 92H, Alanine Aminotransferase (ALT/SGPT) 34, Alkaline Phosphatase 86, Total Protein 6.2L, Albumin 2.2L, Albumin/Globulin Ratio 0.6 02/24/21 04:05: Bedside Glucose (Misc Panel) 261H 02/24/21 05:48: Bedside Glucose (Misc Panel) 273H 02/24/21 05:55: Blood Gas Bicarbonate Standard 20.0L, Arterial Blood pH 7.434, Arterial Blood Partial Pressure CO2 26.4L, Arterial Blood Partial Pressure O2 73.4L, Arterial Blood Total CO2 18.1L, Arterial Blood HCO3 17.3L, Arterial Blood Base Excess - 5.4L, Arterial Blood Oxygen Saturation 94.8L 02/24/21 07:41: Methicillin-Resist S.aureus DNA PCR NOT DETECTED 02/24/21 11:37: Bedside Glucose (Misc Panel) 223H 02/24/21 16:53: Bedside Glucose (Misc Panel) 255H CBC/BMP Laboratory Tests 02/23/21 19:46 02/24/21 03:59 Microbiology Microbiology 02/23/21 Urine Culture, Received Pending 02/23/21 Blood Culture, Received Pending 02/23/21 Blood Culture, Received Pending Rene Browne MD Feb 24, 2021 5:00 pm
[2021-02-24 19:35] LABS: CALCIUM LEVEL 7.5 MG/DL (8.8-10.2); CREATININE FOR GFR 1.88 MG/DL (0.70-1.30); GLOMERULAR FILTRATION RATE 38.4 (>49); PHOSPHORUS LEVEL 2.8 MG/DL (2.5-4.9); POTASSIUM SERUM 4.4 MEQ/L (3.5-5.1)
[2021-02-24] MEDS ORDERED: VANCOMYCIN HCL 1,000 MG, VIAL MATE ADAPTER 1 EACH in NS 250 ML IV SCH (20:00)
[2021-02-24] MEDS: LEVEMIR (INSULIN DETEMIR) 1 UNITS/0.01ML SC SCH (20:57)
[2021-02-25] VITALS (10 sets, daily range): BP systolic 102–142; BP diastolic 53–71
[2021-02-25 05:02] LABS: CALCIUM LEVEL 7.5 MG/DL (8.8-10.2); CREATININE FOR GFR 1.61 MG/DL (0.70-1.30); GLOMERULAR FILTRATION RATE 45.9 (>49); POTASSIUM SERUM 4.2 MEQ/L (3.5-5.1)
[2021-02-25] MEDS: NS 1,000 ML IV SCH (05:32)
[2021-02-25] MEDS: ACETAMINOPHEN TAB 650MG DOSE (2X325MG) PO PRN ×3 (05:34→20:38)
[2021-02-25] MEDS: PIPERACILLIN/TAZOBACTAM SOD 4.5 GM in D5W MINI-BAG PLUS 50 ML IV SCH ×3 (06:21→23:00)
[2021-02-25] MEDS: HumaLOG INSULIN (NovoLOG) PER UNIT SC SCH ×4 (07:28→20:11)
--- NOTE | 2021-02-25 08:51 | IPN ---
PROGRESS NOTE DATE: 02/25/2021 SUBJECTIVE: Mars is seen in the ICU. I have no previous experience with this patient and so his mental status is difficult to determine. It definitely seems altered today. He was admitted with altered mental status and a fall. It looks like he probably has a pyelonephritis on the right. I suspect he passed a renal stone. OBJECTIVE: VITAL SIGNS: He is still on a cooling blanket. Temperature is 100.8. Blood pressure 142/71, 98% O2 saturation on room air. GENERAL APPEARANCE: He is alert and is conversant. He does not know his location, the month, or the year. He does, however, know the name of his primary care provider, Thania Castillo. HEENT: Unremarkable. No JVD. LUNGS: Clear. HEART: Regular rate and rhythm with a 1/6 systolic ejection murmur. ABDOMEN: Soft and nontender with no masses and no CVA tenderness. EXTREMITIES: Moves arm and legs with equal strength. LABORATORY DATA: White count 16.5, hemoglobin 13.5. Creatinine is down to 1.6, it was 2.8 on admission. Urine culture grew out Klebsiella, as well as Staphylococcus simulans. ASSESSMENT/PLAN: 1. Right pyelonephritis. I suspect he passed a stone. He had pyelonephritis and hydroureter on admission CT and an ultrasound, the fullness in the right collecting system is improved compared to a CT from the day earlier. We will continue his IV Zosyn, it should be an appropriate antibiotic for this. He is off vancomycin, which is appropriate as well. 2. Toxic metabolic encephalopathy/altered mental status. I really do not know what his baseline is, but he does not know the month, the year, or where he is; so I assume that that is a decline and we will check this on a daily basis. At this point, I am attributing it to the infection. 3. Diabetes. Blood sugar is under better control. 4. Seizure disorder. Continue current dose of Keppra. 5. Hypertension. Blood pressure is well-controlled on current antihypertensives. 6. Hyperlipidemia. Continue atorvastatin and fenofibrate.
[2021-02-25] MEDS: VENLAFAXINE **XR** 75MG CAPSULE PO SCH (08:59)
[2021-02-25] MEDS: lisinopriL 40 MG TAB PO SCH (08:59)
[2021-02-25] MEDS: FENOFIBRATE 145 MG TAB (TRICOR) PO SCH (08:59)
[2021-02-25] MEDS: KCL 20MEQ IN 0.45NS 1000ML 1,000 ML IV SCH ×2 (08:59→23:00)
[2021-02-25] MEDS: ASPIRIN 325 MG TAB PO SCH (09:00)
[2021-02-25] MEDS: OMEGA-3 1000MG CAPSULE PO SCH (09:00)
[2021-02-25] MEDS: levETIRAcetam 250MG TABLET (KEPPRA) PO SCH ×2 (09:02→20:10)
[2021-02-25] MEDS: ATORVASTATIN 20 MG TAB PO SCH (09:02)
[2021-02-25] MEDS: POTASSIUM CHLORIDE 10 MEQ SR TABLET PO SCH (09:02)
[2021-02-25] MEDS: ENOXAPARIN 40MG/0.4ML SYRINGE (J1650 PER 10MG) SC SCH (09:03)
[2021-02-25] MEDS: LEVEMIR (INSULIN DETEMIR) 1 UNITS/0.01ML SC SCH (20:10)
[2021-02-26] VITALS: BP 107/67
[2021-02-26] MEDS: ACETAMINOPHEN TAB 650MG DOSE (2X325MG) PO PRN ×3 (02:28→18:41)
[2021-02-26 04:15] VITALS: BP 112/65
[2021-02-26 05:27] LABS: HEMATOCRIT 32.2 % (42.0-52.0); HEMOGLOBIN 10.9 g/dl (13.5-17.5); MEAN CORPUSCULAR HEMOGLOBIN 30.4 pg (27.0-33.0); MEAN CORPUSCULAR HGB CONC 33.9 g/dl (32.0-36.5); MEAN CORPUSCULAR VOLUME 89.7 fl (80.0-96.0); PLATELET COUNT, AUTOMATED 147 10^3/uL (150-450); RED BLOOD COUNT 3.59 10^6/uL (4.30-6.10); WHITE BLOOD COUNT 7.9 10^3/uL (4.0-10.0)
[2021-02-26 05:55] LABS: LYMPHOCYTES 8 % (16-44); MONOCYTES 8 % (0-5); NEUTROPHILS 78 % (28-66); PLATELET CLUMPS SMALL AMT; PLATELET ESTIMATE NORMAL (NORMAL)
[2021-02-26 05:56] LABS: ANISOCYTOSIS 1+
[2021-02-26] MEDS: PIPERACILLIN/TAZOBACTAM SOD 4.5 GM in D5W MINI-BAG PLUS 50 ML IV SCH ×2 (06:06→17:44)
[2021-02-26 06:08] LABS: ALBUMIN 1.7 GM/DL (3.2-5.2); ALT/SGPT 57 U/L (12-78); BILIRUBIN,TOTAL 0.5 MG/DL (0.2-1.0); BLOOD UREA NITROGEN 35 MG/DL (7-18); CALCIUM LEVEL 7.2 MG/DL (8.8-10.2); CARBON DIOXIDE LEVEL 20 MEQ/L (21-32); CHLORIDE LEVEL 111 MEQ/L (98-107); CREATININE FOR GFR 1.16 MG/DL (0.70-1.30); GLOMERULAR FILTRATION RATE > 60.0 (>49); GLUCOSE, FASTING 150 MG/DL (70-100); POTASSIUM SERUM 3.9 MEQ/L (3.5-5.1); SODIUM LEVEL 138 MEQ/L (136-145); TOTAL PROTEIN 5.9 GM/DL (6.4-8.2)
[2021-02-26 08:00] VITALS: BP 136/67
[2021-02-26] MEDS: FENOFIBRATE 145 MG TAB (TRICOR) PO SCH (08:02)
[2021-02-26] MEDS: ASPIRIN 325 MG TAB PO SCH (08:02)
[2021-02-26] MEDS: levETIRAcetam 250MG TABLET (KEPPRA) PO SCH ×2 (08:02→20:10)
[2021-02-26] MEDS: VENLAFAXINE **XR** 75MG CAPSULE PO SCH (08:02)
[2021-02-26] MEDS: HumaLOG INSULIN (NovoLOG) PER UNIT SC SCH ×4 (08:03→20:02)
[2021-02-26] MEDS: POTASSIUM CHLORIDE 10 MEQ SR TABLET PO SCH (08:03)
[2021-02-26] MEDS: ATORVASTATIN 20 MG TAB PO SCH (08:03)
[2021-02-26] MEDS: OMEGA-3 1000MG CAPSULE PO SCH (08:04)
[2021-02-26] MEDS: lisinopriL 40 MG TAB PO SCH (08:04)
[2021-02-26] MEDS: ENOXAPARIN 40MG/0.4ML SYRINGE (J1650 PER 10MG) SC SCH (08:05)
--- NOTE | 2021-02-26 09:52 | IPN ---
PROGRESS NOTE DATE: 02/26/2021 SUBJECTIVE: Mars is seen in ICU. He was admitted with altered mental status probably from a urinary tract infection. It has grown out Klebsiella and Staphylococcus simulans. He is clinically improved. He is much more oriented today and his fever has improved. He is off the cooling blanket. OBJECTIVE: VITAL SIGNS: Temperature 101 degrees, blood pressure 130/67, pulse 98, 95% O2 saturation. GENERAL APPEARANCE: Alert, conversant, no distress. He knows the location, the month and the year. LUNGS: Clear. HEART: Regular rate and rhythm. ABDOMEN: Soft, nontender. No CVA tenderness. EXTREMITIES: Trace peripheral edema. LABS: CBC: White count 7.9, hemoglobin 10.9, platelets 147. Sodium 138, potassium 3.9, BUN 35, creatinine 1.16, glucose 150. IMPRESSION AND PLAN: 1. Toxic metabolic encephalopathy from right pyelonephritis. I suspect he passed a stone. He had a right hydroureter that improved over the first two days of his hospitalization. Continue the IV Zosyn which should be the appropriate antibiotic for now. 2. Diabetes. Blood sugars are better controlled. 3. Seizure disorder. Continue current dose of Keppra. 4. Hypertension. Blood pressure is well controlled. 5. Hyperlipidemia. Continue atorvastatin, fenofibrate. 6. We will transfer him out of PCU today up to the general medical floor. Probably could be discharged on oral antibiotic within the next one to two days. 7. Acute kidney injury. His renal function has returned to baseline with hydration. We will stop the IV fluids today.
[2021-02-26 14:00] VITALS: BP 135/74
[2021-02-26 18:00] VITALS: BP 141/75
[2021-02-26] MEDS: LEVEMIR (INSULIN DETEMIR) 1 UNITS/0.01ML SC SCH (20:11)
[2021-02-26 22:00] VITALS: BP 142/74
[2021-02-27] VITALS (7 sets, daily range): BP systolic 143–178; BP diastolic 58–86
[2021-02-27] MEDS: PIPERACILLIN/TAZOBACTAM SOD 4.5 GM in D5W MINI-BAG PLUS 50 ML IV SCH (00:14)
[2021-02-27] MEDS: ACETAMINOPHEN TAB 650MG DOSE (2X325MG) PO PRN ×2 (04:48→18:15)
[2021-02-27 05:47] LABS: HEMATOCRIT 33.8 % (42.0-52.0); HEMOGLOBIN 11.7 g/dl (13.5-17.5); MEAN CORPUSCULAR HEMOGLOBIN 30.5 pg (27.0-33.0); MEAN CORPUSCULAR HGB CONC 34.6 g/dl (32.0-36.5); MEAN CORPUSCULAR VOLUME 88.3 fl (80.0-96.0); PLATELET COUNT, AUTOMATED 176 10^3/uL (150-450); RED BLOOD COUNT 3.83 10^6/uL (4.30-6.10); WHITE BLOOD COUNT 8.5 10^3/uL (4.0-10.0)
[2021-02-27 06:19] LABS: BLOOD UREA NITROGEN 24 MG/DL (7-18); CALCIUM LEVEL 7.7 MG/DL (8.8-10.2); CARBON DIOXIDE LEVEL 23 MEQ/L (21-32); CHLORIDE LEVEL 108 MEQ/L (98-107); CREATININE FOR GFR 0.94 MG/DL (0.70-1.30); GLOMERULAR FILTRATION RATE > 60.0 (>49); GLUCOSE, FASTING 94 MG/DL (70-100); SODIUM LEVEL 138 MEQ/L (136-145)
[2021-02-27] MEDS: HumaLOG INSULIN (NovoLOG) PER UNIT SC SCH ×4 (07:30→21:00)
[2021-02-27] MEDS ORDERED: BACTRIM 160MG/800MG DS TAB PO SCH (09:00)
[2021-02-27] MEDS: ENOXAPARIN 40MG/0.4ML SYRINGE (J1650 PER 10MG) SC SCH (09:41)
[2021-02-27] MEDS: FENOFIBRATE 145 MG TAB (TRICOR) PO SCH (09:41)
[2021-02-27] MEDS: POTASSIUM CHLORIDE 10 MEQ SR TABLET PO SCH (09:41)
[2021-02-27] MEDS: OMEGA-3 1000MG CAPSULE PO SCH (09:41)
[2021-02-27] MEDS: ASPIRIN 325 MG TAB PO SCH (09:41)
[2021-02-27] MEDS: ATORVASTATIN 20 MG TAB PO SCH (09:41)
[2021-02-27] MEDS: VENLAFAXINE **XR** 75MG CAPSULE PO SCH (09:42)
[2021-02-27] MEDS: lisinopriL 40 MG TAB PO SCH (09:42)
[2021-02-27] MEDS: levETIRAcetam 250MG TABLET (KEPPRA) PO SCH ×2 (09:42→21:34)
--- NOTE | 2021-02-27 12:50 | REP ---
INDICATION: shortness of breath. COMPARISON: 02/23/2021. TECHNIQUE: Single portable AP view of the chest was performed. FINDINGS: Mild discoid atelectasis is noted in the right lung base. No infiltrate is seen. The heart is not significantly enlarged. The mediastinal silhouette is unchanged. IMPRESSION: Mild right basilar discoid atelectasis without evidence of acute infiltrate. <Electronically signed by Fan Juarez > 02/27/21 124
[2021-02-27 13:31] LABS: HEMATOCRIT 37.9 % (42.0-52.0); HEMOGLOBIN 13.2 g/dl (13.5-17.5); MEAN CORPUSCULAR HEMOGLOBIN 30.7 pg (27.0-33.0); MEAN CORPUSCULAR HGB CONC 34.8 g/dl (32.0-36.5); MEAN CORPUSCULAR VOLUME 88.1 fl (80.0-96.0); PLATELET COUNT, AUTOMATED 180 10^3/uL (150-450); WHITE BLOOD COUNT 7.1 10^3/uL (4.0-10.0)
[2021-02-27 13:54] LABS: BLOOD UREA NITROGEN 23 MG/DL (7-18); CARBON DIOXIDE LEVEL 20 MEQ/L (21-32); CHLORIDE LEVEL 108 MEQ/L (98-107); CK-MB VALUE MASS 3.7 NG/ML (<3.6); CPK CREATINE PHOSPHOKINASE 632 U/L (39-308); GLOMERULAR FILTRATION RATE > 60.0 (>49); GLUCOSE, FASTING 148 MG/DL (70-100); MB/CK RELATIVE INDEX 0.59 (< OR =4); POTASSIUM SERUM 3.6 MEQ/L (3.5-5.1); SODIUM LEVEL 138 MEQ/L (136-145)
[2021-02-27 13:58] LABS: LYMPHOCYTES 8 % (16-44); NEUTROPHILS 92 % (28-66)
[2021-02-27 13:59] LABS: PLATELET ESTIMATE NORMAL (NORMAL)
[2021-02-27] MEDS ORDERED: HEPARIN SOD (PORCINE) 5000UNITS/ML 1ML VIAL/SYRINGE IV ONE (14:25)
[2021-02-27] MEDS ORDERED: HEPARIN DRIP 25,000 UNITS in IV 1 EA IV SCH ×2 (14:25→14:48)
[2021-02-27] MEDS ORDERED: HEPARIN SOD (PORCINE) 5000UNITS/ML 1ML VIAL/SYRINGE IV PRN (14:25)
[2021-02-27] MEDS ORDERED: ISOVUE-370 76% 100ML VIAL As Ordered ONE (14:32)
--- NOTE | 2021-02-27 14:58 | REP ---
INDICATION: hypoxia, tachycardia, rule out PE. COMPARISON: Comparison CT study of the chest is from February 23, 2021. TECHNIQUE: Contrast dose: 75 ML of Isovue [address] technique: Helical scanning is acquired and overlapping 1.5 mm and contiguous 3 mm axial images are reformatted. In addition, maximum intensity projection and multiplanar re-formation images are generated in sagittal and coronal imaging projections. FINDINGS: There is good opacification in the pulmonary arterial tree. There is no evidence of vessel cut off or filling defect to suggest pulmonary embolus. Homogeneous opacity is seen in the thoracic aorta. There is no evidence of aneurysm or dissection. There is mild respiratory motion artifact. Small bilateral pleural effusions are seen, right a little larger than left. This is new on the left and increased somewhat on the right from the recent prior study. There is left coronary artery vascular calcification. No hilar or mediastinal mass or adenopathy is seen. Mural thickening is seen in the distal 3rd of the esophagus as noted on recent prior study. Question esophagitis. Lung window settings demonstrate mild subsegmental atelectasis in the lower lobes bilaterally. No infiltrate is seen. No mass or significant pulmonary nodule is appreciated. In the upper abdomen, there is fatty infiltration of the liver. There is regional impairment in contrast enhancement the upper pole the right kidney which appears swollen. Hydronephrosis is noted in the right kidney which is incompletely included in the imaging field of view. Obstructive uropathy was described on the February 23, 2021 CT study and this is felt to be related to the hydronephrosis and the UB ureteral obstruction. Possible pyelonephritis. There is a cyst in the upper pole the left kidney. The visualized upper abdominal structures are otherwise unremarkable. No bony destructive lesion is seen. IMPRESSION: No CT evidence of pulmonary embolus. Small bilateral pleural effusions. Fatty infiltration of the liver. Obstructive uropathy again noted right kidney with regional impairment of contrast enhancement in the upper pole of the right kidney as discussed above. Elongate segment of mural thickening in the distal esophagus suggestive of esophagitis. <Electronically signed by Usman Benitez > 02/27/21 [id number]
[2021-02-27] MEDS ORDERED: FUROSEMIDE 20MG/2ML VIAL (J1940) IV ONE (15:40)
--- NOTE | 2021-02-27 16:23 | IPNPDOC ---
Text Note Date of Service The patient was seen on 02/27/21. NOTE Subjective: 65-year-old male came into the hospital for mental status found to have sepsis possibly secondary to urinary tract infection. Patient had been doing better up until about 10 AM this morning when the patient started shivering and having a tough time breathing. Patient was also found to be hypoxic and tachycardic. Patient was placed on 4 L of oxygen which was able to recover the oxygen saturations to 92%. Patient has been tachycardic throughout most of the day. Patient does not complain of any pain at this time and states he is feeling otherwise well. Patient does not have any other complaints including no chest pain or complaining of difficulty breathing. Review of systems: General: Patient denies fevers HEENT: Patient denies headaches Cardiovascular: Patient denies chest pain Respiratory: Patient denies shortness of breath, cough GI: Patient denies abdominal pain, nausea, vomiting, diarrhea : Patient denies increased frequency or pain with urination Extremities: Patient denies swelling or pain in extremities Neurological: Patient denies numbness or tingling in legs Physical exam: Vitals: See below General: Alert and oriented male patient who was sitting up in bed when I walked initially. Patient did not appear to be in any acute distress. HEENT: Normocephalic, atraumatic, moist mucous membranes. Neck: No lymphadenopathy or thyromegaly Cardiac: Regular rate and rhythm, no murmurs, normal S1, normal S2 Pulm: Clear to auscultation bilaterally. No wheezes, rhonchi, rales Abd: Nondistended, nontender to palpation, normal bowel sounds Ext: No edema bilateral lower extremities Labs: See below Imaging: Chest x-ray performed on 02/27/2021 is ordered to show mild right basilar discoid atelectasis without evidence of acute infiltrate. CT angiogram of the chest was performed on 02/27/2021 is reported to show no CT evidence of pulmonary embolus. Small bilateral pleural effusions. Fatty infiltration of the liver. Obstructive uropathy again noted in the right kidney with regional impairment of contrast enhancement in the upper pole of the right kidney. Elongated segment of mural thickening in the distal esophagus suggestive of esophagitis. Assessment/plan: 65-year-old male who presented initially with altered mental status who was found to be hypoxic and tachycardic earlier today. 1. Hypoxia. Patient was initially thought to be hypoxic and tachycardic due to on being unable to urinate. Patient had his Fields catheter removed earlier today however, the patient had a Fields catheter reinserted and was able to void but still pink was hypoxic and tachycardic. Patient is CT angiogram as the cause was thought to be secondary to a pulmonary embolism but this was negative only showing pleural effusions which have developed. Patient may have fluid overload and will receive a dose of IV Lasix 20 mg to see if this helps with the hypoxia. Patient also did have a mild elevation in his troponin at 0.3 however, the patient did have an elevation of his troponin at 0.11 upon admission. We will trend the patient's troponins. Patient is willing to be transferred if troponins continue to rise. Patient received 325 mg of aspirin on a daily basis. 2. Toxic metabolic encephalopathy from right pyelonephritis. Patient does appear to still have a hydroureter but this had improved on ultrasound from a few days ago. Patient will be on p.o. Bactrim as I discussed with pharmacy stating that the 2 bacteria that grew out in the urine were sensitive to Bactrim. 3. Diabetes. Continue to monitor patient sugars. 4. Seizure disorder. Continue current dose of Keppra. 5. Hypertension. Continue to monitor and continue home medications. 6. Hyperlipidemia. Continue atorvastatin fenofibrate. 7. Pyelonephritis. Continue with Bactrim. 8. Acute kidney injury, resolved. DVT Prophylaxis: Lovenox Disposition: Pending clinical improvement Late entry: Patient will received 20 mg IV Lasix which should help with diuresis. Patient's tachycardia has improved. Patient did have a troponin that was drawn prior to the introduction of Lasix. Patient troponin was 0.68. I did speak with cardiology who advised continue diuresis as this seems to be the reason why the patient is still having an elevation of his troponin. We will repeat this tomorrow morning. Patient again does not complain of any chest pain however, patient did have a fever. I did speak with urology who states that patient's can still have fevers multiple days into treatment of pyelonephritis especially as severe as this patient's pyelonephritis was. Patient has now been switched back to Zosyn 3.375 g every 6 hours and we will continue to monitor. Patient will have repeat labs tomorrow morning and will continue with IV Lasix 20 mg every 8 hours at this time. VS,Fishbone, I+O VS, Fishbone, I+O Laboratory Tests 02/27/21 05:35 02/27/21 13:20 Vital Signs Date Time Temp Pulse Resp B/P (MAP) Pulse Ox O2 Delivery O2 Flow Rate FiO2 02/27/21 14:00 98.2 116 38 166/62 (96) 92 Nasal Cannula 4.0 I&O- Last 24 Hours up to 6 AM 02/27/21 06:00 Intake Total 1560 ml Output Total 1750 ml Balance -190 ml STANFORD GOODRICH DO Feb 27, 2021 16:23
[2021-02-27 17:54] LABS: CK-MB VALUE MASS 2.8 NG/ML (<3.6); MB/CK RELATIVE INDEX 0.6 (< OR =4); TROPONIN I 0.68 NG/ML (< 0.10)
[2021-02-27] MEDS: ENOXAPARIN 100MG/1ML SYRINGE (J1650 PER 10MG) SC SCH (18:14)
[2021-02-27] MEDS: PIPERACILLIN/TAZOBACTAM SOD 3.375 GM in D5W MINI-BAG PLUS 50 ML IV SCH (18:14)
[2021-02-27] MEDS: LEVEMIR (INSULIN DETEMIR) 1 UNITS/0.01ML SC SCH (21:00)
--- NOTE | 2021-02-27 21:11 | CR ---
CONSULTATION DATE: 02/27/2021 REQUESTING PHYSICIAN: Dr. Anoop Farias CONSULTING PHYSICIAN: Dr. Asya Mcneal REASON FOR CONSULTATION: Shortness of breath, elevated troponin and chest pain. HISTORY OF PRESENT ILLNESS: Mr. Ba is previously unknown to me. He is a 65-year-old gentleman who was admitted on February 23 with altered mental status that eventually was diagnosed with urosepsis. He has been treated with vigorous hydration and IV antibiotics and his condition improved. But apparently earlier today he suddenly became more hypoxic and required more oxygen. It was felt that the most likely diagnosis was pulmonary embolism and he underwent a CT angiography of the chest. It revealed no evidence of PE but there were bilateral pleural effusions, relatively small in size. His troponin became mildly elevated and the leading diagnosis at this point is congestive heart failure. It is important to note that over the last several days his fluid balance has been grossly positive. The initial day he was positive a little over 4 liters, the second day approximately 4 liters and the third day about 2.5 liters. Yesterday the balance was approximately neutral and today is already negative after he received a couple doses of Lasix. At the bedside the patient tells me that he is feeling about the same as he felt this morning. He is laying completely flat in bed. He does not appear to be in any distress even though he is mildly tachypneic. He does admit that he is feeling short of breath somewhat but denies any chest discomfort. He does not believe that the Lasix that was administered this afternoon led to any significant change in his respiratory status. An EKG was performed on admission that revealed bifascicular block, sinus rhythm with frequent atrial ectopy and tachycardic rate. Apparently another EKG was performed earlier today that revealed on ischemic abnormalities but I was not able to find it in the patient's chart or his electronic records. PAST MEDICAL HISTORY: 1. Type 2 diabetes of many years. 2. History of seizure disorder. 3. Hypertension. 4. Dyslipidemia. 5. 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 6. History of alcohol and tobacco use. PAST SURGICAL HISTORY: The patient's past surgical history is positive for a right femoral fracture repair. FAMILY HISTORY: The patient's family history is positive for COPD in his father. SOCIAL HISTORY: The patient tells me that he lives alone. He denies any family. He does admit that he has been a heavy smoker to these days. He denies significant alcohol as of the last few days or weeks. OUTPATIENT MEDICATIONS: 1. Aspirin 325 daily. 2. Atorvastatin 40 mg daily. 3. Buspirone 20 mg three times daily. 4. Fenofibrate 145 mg daily. 5. Gabapentin 300 mg three times daily. 6. Insulin. 7. Keppra 500 twice daily. 8. Lisinopril 40 mg daily. 9. Metformin one gram twice daily. 10. Potassium 10 mg daily. 11. Ozempic injected 0.25 mg weekly. 12. Venlafaxine 150 mg daily. ALLERGIES: He has a reported intolerance of Simvastatin. REVIEW OF SYSTEMS: The patient is somewhat detached affect so it is not totally easy to establish good conversation with him. But he currently denies any chest discomfort, pressure or heaviness. He denies any sensation of palpitations. He denies any shaking chills. He does admit to right flank abdominal pain. The rest as per HPI or negative. PHYSICAL EXAMINATION: GENERAL APPEARANCE: Mr. Ba is laying in the PCU bed completely in a horizontal position. He does not appear to be any distress even though he is tachypneic with a respiratory rate documented around 30 breaths per minute. VITAL SIGNS: Last set of vital signs - blood pressure 144/68, temperature 101.2 rectally, it was as high as 103.5 earlier this afternoon. Saturation is 95% on 4 liters of oxygen via nasal cannula. Heart rate is in the 90's. It is sinus rhythm with a wide QRS complex. Fluid balance as per HPI. It is currently about 2 liters negative today. NECK: His JVP is difficult to assess due to his position in the bed but it does not appear to be grossly elevated on my exam. LUNGS: Bilateral and inspiratory crackles throughout both lung soliman. I do not appreciate any wheezing. Air movement seems to be good. HEART: Regular tachycardia. I do not appreciate any distant gallop, rub or murmur. ABDOMEN: Somewhat tender over the right lower quadrant, but I do not appreciate any guarding. Bowel sounds are present. EXTREMITIES: Free of edema. Peripheral pulses are full quality. No trophic defect of the toes or lower extremities in general. Decreased deep tendon reflexes bilateral and lower extremities. NEUROLOGICAL: He is certainly alert and oriented and answers all questions appropriately even though his affect is flat and somewhat detached. LABORATORY DATA: CBC as of this afternoon - WBC count 7.1, hemoglobin 13.2, hematocrit 37, platelet count 180,000, in differential 92% neutrophils and 8% lymphocytes. Basic metabolic panel - sodium 138, potassium 3.6, BUN 23, creatinine 0.9, glucose 148. Lactic acid was 1.5 this afternoon. He had several sets of troponins drawn. The initial one on admission was 0.11. This afternoon at 1:20 it was 0.3 and at 16:25 0.68. IMAGING DATA: CT angiography of the chest was negative for pulmonary embolism, revealed small bilateral pleural effusions. There was fatty liver and obstructive uropathy on the right. There was also a thickening of distal esophagus, suggestive of esophagitis. ASSESSMENT AND PLAN: Mr. Ba is a 65-year-old man who was admitted with urosepsis on February 23 and was treated with antibiotics with gradual improvement until development of significant hypoxemia and shortness of breath earlier today. He has two troponins that are mildly elevated. He denies any chest discomfort and CT is negative for pulmonary embolism. I do believe that the most likely diagnosis is indeed congestive heart failure, most likely precipitated by vigorous hydration over the last several days. The troponin elevation is of uncertain significance. In spite of apparently being obtained, I was not able to locate his EKG from earlier today, and I am going to request to get one EKG to be done now. He is already on Aspirin and a full therapeutic dose of Lovenox. He also is getting IV diuretics. I do think that it is likely that this intervention will lead to improvement in his condition. He certainly has numerous risk factors for coronary artery disease that include a longstanding history of smoking, type 2 diabetes, hypertension and dyslipidemia. Depending on his clinical course, he will need further evaluation, most likely even cardiac catheterization, but in the setting of ongoing fever and urinary tract infection, I am afraid that these options will be closed for the near future. His condition is certainly guarded, but I am hopeful that with appropriate management, he will continue to turn around and ultimately improve. IRENE
[2021-02-28] VITALS (16 sets, daily range): BP systolic 120–147; BP diastolic 60–68; O2SAT 91–98
[2021-02-28] MEDS: FUROSEMIDE 20MG/2ML VIAL (J1940) IV SCH ×3 (00:27→16:26)
[2021-02-28] MEDS: PIPERACILLIN/TAZOBACTAM SOD 3.375 GM in D5W MINI-BAG PLUS 50 ML IV SCH ×4 (00:27→17:51)
[2021-02-28 05:10] LABS: HEMATOCRIT 41.1 % (42.0-52.0); HEMOGLOBIN 14.3 g/dl (13.5-17.5); MEAN CORPUSCULAR HEMOGLOBIN 30.9 pg (27.0-33.0); MEAN CORPUSCULAR HGB CONC 34.8 g/dl (32.0-36.5); MEAN CORPUSCULAR VOLUME 88.8 fl (80.0-96.0); PLATELET COUNT, AUTOMATED 198 10^3/uL (150-450); RED BLOOD COUNT 4.63 10^6/uL (4.30-6.10); WHITE BLOOD COUNT 7.5 10^3/uL (4.0-10.0)
[2021-02-28 05:35] LABS: BLOOD UREA NITROGEN 28 MG/DL (7-18); CALCIUM LEVEL 8.3 MG/DL (8.8-10.2); CARBON DIOXIDE LEVEL 23 MEQ/L (21-32); CHLORIDE LEVEL 107 MEQ/L (98-107); CPK CREATINE PHOSPHOKINASE 241 U/L (39-308); CREATININE FOR GFR 1.18 MG/DL (0.70-1.30); GLOMERULAR FILTRATION RATE > 60.0 (>49); GLUCOSE, FASTING 244 MG/DL (70-100); MB/CK RELATIVE INDEX 0.83 (< OR =4); NT-PRO BNP 13350 PG/ML (<125); POTASSIUM SERUM 3.6 MEQ/L (3.5-5.1); SODIUM LEVEL 140 MEQ/L (136-145); TROPONIN I 0.52 NG/ML (< 0.10)
[2021-02-28] MEDS: ENOXAPARIN 100MG/1ML SYRINGE (J1650 PER 10MG) SC SCH ×2 (05:56→17:51)
[2021-02-28] MEDS ORDERED: ENOXAPARIN 40MG/0.4ML SYRINGE (J1650 PER 10MG) SC SCH (09:00)
[2021-02-28] MEDS: ASPIRIN 325 MG TAB PO SCH (09:35)
[2021-02-28] MEDS: HumaLOG INSULIN (NovoLOG) PER UNIT SC SCH ×4 (09:35→20:29)
[2021-02-28] MEDS: OMEGA-3 1000MG CAPSULE PO SCH (09:36)
[2021-02-28] MEDS: ATORVASTATIN 20 MG TAB PO SCH (09:36)
[2021-02-28] MEDS: TAMSULOSIN 0.4 MG CAP PO SCH (09:36)
[2021-02-28] MEDS: levETIRAcetam 250MG TABLET (KEPPRA) PO SCH ×2 (09:36→20:29)
[2021-02-28] MEDS: VENLAFAXINE **XR** 75MG CAPSULE PO SCH (09:37)
[2021-02-28] MEDS: POTASSIUM CHLORIDE 10 MEQ SR TABLET PO SCH (09:37)
[2021-02-28] MEDS: lisinopriL 40 MG TAB PO SCH (09:37)
--- NOTE | 2021-02-28 10:32 | IPNPDOC ---
Text Note Date of Service The patient was seen on 02/28/21. NOTE Subjective: Patient is a 65-year-old male who came to the hospital with altered mental status and was found to be septic possibly secondary to a urinary tract infection with the right kidney showing hydronephrosis. Patient was doing better until about 10 AM yesterday morning when the patient started shivering is having a difficult time breathing. Work-up showed that the patient was possibly fluid overloaded. Patient has received Lasix and was responding nicely. Patient says he is feeling better this morning than he was yesterday. Patient's troponin did elevate yesterday but is coming down. Cardiology saw the patient yesterday. Echocardiogram has been ordered. Patient states he is feeling better at this time. Review of systems: General: Patient denies fevers HEENT: Patient denies headaches Cardiovascular: Patient denies chest pain Respiratory: Patient denies shortness of breath, cough GI: Patient denies abdominal pain, nausea, vomiting, diarrhea : Patient denies increased frequency or pain with urination Extremities: Patient denies swelling or pain in extremities Neurological: Patient denies numbness or tingling in legs Physical exam: Vitals: See below General: Alert and oriented male patient who was sitting up in bed. Patient did not appear to be in any acute distress. HEENT: Normocephalic, atraumatic, moist mucous membranes. Neck: No lymphadenopathy or thyromegaly Cardiac: Regular rate and rhythm, no murmurs, normal S1, normal S2 Pulm: Fine crackles in the bilateral bases other lung soliman clear to auscultation bilaterally Abd: Nondistended, nontender to palpation, normal bowel sounds Ext: No edema bilateral lower extremities Labs: See below Imaging: No new imaging has been performed Assessment/plan: 65-year-old male who presented initially with altered mental status was found to be hypoxic and tachycardic earlier yesterday. 1. Hypoxia. Patient's hypoxia initially was thought to be due to inability to urinate. Patient had Fields catheter placed and this did not help. CT angiogram was negative for pulmonary embolism but did show pleural effusions. Patient troponin did elevate and the patient was thought to be fluid overloaded and the patient was started on IV Lasix 20 mg every 8 hours. Patient is doing better and is net negative at this time. Patient was able to be off oxygen this morning. 2. Toxic metabolic encephalopathy from right pyelonephritis. Patient did appear to still hydroureter with this had improved on ultrasound from a few days ago. Patient will continue on IV Zosyn as the patient did have a fever yesterday. 3. Elevated troponin. This is most likely secondary to congestive heart failure exacerbation. Dr. Mcneal has seen the patient and will continue to follow. I appreciate his recommendations and helping treat the patient. Echocardiogram has been ordered. Patient has been switched to full dose Lovenox at this time and continue with aspirin. Patient will most likely need cardiac catheterization once the toxic metabolic encephalopathy has resolved. 4. Diabetes mellitus. Continue to monitor the patient sugars. 5. Seizure disorder. Continue current dose of Keppra. 6. Hypertension. Continue to monitor and continue home medications. 7. Hyperlipidemia. Continue atorvastatin and fenofibrate. 8. Pyelonephritis. Continue with Zosyn. Patient did have a slight bump in his creatinine at the CT angiogram. I will continue to monitor the patient and probably order a CT of the abdomen pelvis with IV contrast tomorrow depending on how his kidney function is. 9. Acute kidney injury, resolved at this time. DVT Prophylaxis: Full dose Lovenox due to elevation of troponins. Disposition: Pending clinical improvement VSReece, I+O VSReece I+O Laboratory Tests 02/27/21 13:20 02/28/21 04:59 Vital Signs Date Time Temp Pulse Resp B/P (MAP) Pulse Ox O2 Delivery O2 Flow Rate FiO2 02/28/21 08:01 99.0 99 20 147/68 (94) 93 Room Air 02/28/21 04:00 4.0 I&O- Last 24 Hours up to 6 AM 02/28/21 06:00 Intake Total 700 ml Output Total 4500 ml Balance -3800 ml STANFORD GOODRICH DO Feb 28, 2021 10:32
--- NOTE | 2021-02-28 15:03 | ECGEPIP ---
[facility] Test Date: 2021-02-27 Pat Name: PHILLY LINDSAY III Department: Room: [place] [address] Gender: Male Quantitative Consultant: GIOVANI : 1955 Requested By: STANFORD GOODRICH Order Number: [id number] Reading MD: Juan Cosby Measurements Intervals [place] Rate: 127 P: 29 PA: 150 QRS: 85 QRSD: 146 T: 37 QT: 396 QTc: 575 Interpretive Statements Sinus tachycardia; cannot exclude atrial flutter with 2:1 a:v conduction Right bundle branch block No significant change when compared to prior tracing of 02/23/2021 Electronically Signed on 02-28-2021 15:03:07 EDT by Jaun Cosby
--- NOTE | 2021-02-28 15:10 | ECGEPIP ---
[facility] Test Date: 2021-02-27 Pat Name: PHILLY LINDSAY III Department: Room: [place] [address] Gender: Male Cable Television Technician: REYMUNDO SAPP RN : 1955 Requested By: Asya Mcneal Order Number: [id number] Reading MD: Juan Cosby Measurements Intervals [place] Rate: 96 P: 26 MO: 156 QRS: 91 QRSD: 148 T: 57 QT: 420 QTc: 530 Interpretive Statements Normal sinus rhythm Left atrial enlargement Right bundle branch block Compared to prior tracing of earlier this date, heart rate is slower Electronically Signed on 02-28-2021 15:10:02 EDT by Juan Cosby
[2021-02-28] MEDS: ACETAMINOPHEN TAB 650MG DOSE (2X325MG) PO PRN (16:26)
[2021-02-28] MEDS: LEVEMIR (INSULIN DETEMIR) 1 UNITS/0.01ML SC SCH (20:29)
[2021-03-01] VITALS: BP 152/70
[2021-03-01] MEDS: FUROSEMIDE 20MG/2ML VIAL (J1940) IV SCH (00:29)
[2021-03-01] MEDS: PIPERACILLIN/TAZOBACTAM SOD 3.375 GM in D5W MINI-BAG PLUS 50 ML IV SCH ×4 (00:29→17:13)
[2021-03-01 04:00] VITALS: BP 147/66
[2021-03-01 05:32] LABS: HEMATOCRIT 35.7 % (42.0-52.0); HEMOGLOBIN 12.4 g/dl (13.5-17.5); MEAN CORPUSCULAR HEMOGLOBIN 30.6 pg (27.0-33.0); MEAN CORPUSCULAR HGB CONC 34.7 g/dl (32.0-36.5); MEAN CORPUSCULAR VOLUME 88.1 fl (80.0-96.0); PLATELET COUNT, AUTOMATED 221 10^3/uL (150-450); RED BLOOD COUNT 4.05 10^6/uL (4.30-6.10); WHITE BLOOD COUNT 7.3 10^3/uL (4.0-10.0)
[2021-03-01 06:07] LABS: BLOOD UREA NITROGEN 31 MG/DL (7-18); CALCIUM LEVEL 8.2 MG/DL (8.8-10.2); CARBON DIOXIDE LEVEL 27 MEQ/L (21-32); CHLORIDE LEVEL 106 MEQ/L (98-107); CK-MB VALUE MASS 1.8 NG/ML (<3.6); CPK CREATINE PHOSPHOKINASE 114 U/L (39-308); CREATININE FOR GFR 1.17 MG/DL (0.70-1.30); GLOMERULAR FILTRATION RATE > 60.0 (>49); GLUCOSE, FASTING 171 MG/DL (70-100); MB/CK RELATIVE INDEX 1.58 (< OR =4); POTASSIUM SERUM 3.2 MEQ/L (3.5-5.1); SODIUM LEVEL 139 MEQ/L (136-145); TROPONIN I 0.06 NG/ML (< 0.10)
[2021-03-01] MEDS: ENOXAPARIN 100MG/1ML SYRINGE (J1650 PER 10MG) SC SCH ×2 (06:16→17:14)
--- NOTE | 2021-03-01 07:41 | ECGEPIP ---
[place] Test Date: 2021-02-28 Pat Name: PHILLY LINDSAY III Department: Room: [place] [address] Gender: Male Corn Shredder: rohan : 1955 Requested By: STANFORD GOODRICH Order Number: [id number] Reading MD: Juan Cosby Measurements Intervals [place] Rate: 98 P: 63 NV: 140 QRS: 91 QRSD: 148 T: 70 QT: 386 QTc: 492 Interpretive Statements Normal sinus rhythm Left atrial abnormality Right bundle branch block No significant change when compared to prior tracing of 02/27/2021 Electronically Signed on 03-01-2021 7:41:05 EDT by Juan Cosby
[2021-03-01] MEDS: HumaLOG INSULIN (NovoLOG) PER UNIT SC SCH ×4 (07:58→20:36)
[2021-03-01 08:00] VITALS: BP 152/72
[2021-03-01] MEDS: TAMSULOSIN 0.4 MG CAP PO SCH (08:23)
[2021-03-01] MEDS: OMEGA-3 1000MG CAPSULE PO SCH (08:23)
[2021-03-01] MEDS: lisinopriL 40 MG TAB PO SCH (08:24)
[2021-03-01] MEDS ORDERED: ISOVUE-370 76% 100ML VIAL As Ordered ONE (08:24)
[2021-03-01] MEDS: VENLAFAXINE **XR** 75MG CAPSULE PO SCH (08:24)
[2021-03-01] MEDS: ATORVASTATIN 20 MG TAB PO SCH (08:24)
[2021-03-01] MEDS: levETIRAcetam 250MG TABLET (KEPPRA) PO SCH ×2 (08:24→20:40)
[2021-03-01] MEDS: ASPIRIN 325 MG TAB PO SCH (08:25)
[2021-03-01] MEDS: POTASSIUM CHLORIDE 10 MEQ SR TABLET PO SCH ×3 (08:25→14:06)
[2021-03-01] MEDS: FUROSEMIDE 20 MG TAB PO SCH (09:38)
--- NOTE | 2021-03-01 09:45 | REP ---
INDICATION: hydronephrosis and mass near right internal iliac artery. COMPARISON: Comparison CT study is from February 23, 2021 done as a noncontrast CT examination. TECHNIQUE: Contrast dose: 100 ML of Isovue [address] technique: Helical scanning is acquired and 3 mm axial images are re-formatted. In addition, multiplanar re-formation images are generated in sagittal and coronal imaging projections. A delayed postcontrast acquisition is included. Pre contrast scanning is included. FINDINGS: Preliminary digital tool filer radiograph demonstrates mild gaseous distention of the mid colon. There is an orthopedic pin in the right hip. There is a very small sliver of pleural fluid on the right. There is subsegmental atelectasis in the right lower lobe posteriorly adjacent to the fluid. The lung bases are otherwise clear. The liver and the spleen are normal in size homogeneous in texture. There are 2 small accessory splenules. No focal hepatic lesion is seen. No abnormality is noted in the gallbladder or the pancreas. Normal adrenal glands are observed bilaterally. The right kidney is enlarged and shows mild to moderate hydronephrosis and a delayed nephrogram on postcontrast images. The right kidney measures 15.1 cm in length compared to the left side which measures 12.7. There is regional impairment of renal parenchymal enhancement in the upper pole medially and some heterogeneous enhancement is seen in the remainder of the kidney raising question of pyelonephritis. No martina renal carbuncle is seen. A small cyst is seen in the upper pole the right kidney and there are cortical cysts on the left the largest of which is at mid pole level measuring 2.0 cm in greatest diameter. The right-sided hydronephrosis and hydroureter can again be traced into the pelvis where there is a ill-defined soft tissue density anterior and inferior to the right internal iliac artery along the right pelvic sidewall. This soft tissue density measures approximately 3.7 x 2.4 x 2.7 cm in diameter. The course of the ureter is along its anteromedial aspect. The ureter is not dilated below this level. No ureteral or other urinary tract calculus is seen. There is a Fields catheter in the bladder. Urinary bladder yost are diffusely somewhat thickened. No bladder mass lesion is appreciated. Seminal vesicles and prostate are unremarkable. No other pelvic mass or adenopathy is seen. A normal appendix is seen in the right mid abdomen, mesenteric cecum in the mid abdomen. Air-fluid levels are seen throughout the colon. No obstructive lesion is seen. No bony destructive lesion is seen. No abdominal wall defect is observed. IMPRESSION: Obstructive uropathy on the right at the level of the pelvis where there is an ill-defined 3.7 cm soft tissue mass. This appears to be obstructing the adjacent right ureter. Differential possibilities include neoplastic adenopathy and, primary ureteral malignancy. The lesion does not appear to be amenable to percutaneous sampling. There is a heterogeneous obstructive nephrogram raising question of pyelonephritis on the right. Right kidney is enlarged and there is moderate hydronephrosis. Ileus pattern in the bowel gas. Very small amount of right pleural fluid. <Electronically signed by Usman Benitez > 03/01/21 0801
--- NOTE | 2021-03-01 12:15 | IPNPDOC ---
Text Note Date of Service The patient was seen on 03/01/21. NOTE Subjective: Patient is a 65-year-old male initially came in with altered mental status found to be septic possibly secondary to urinary tract infection with the right kidney showing hydronephrosis. Patient is feeling better today. Patient denies any shortness of breath or chest pain. Patient says the pain in his right flank is also improved. Patient is doing otherwise well at this time. Review of systems: General: Patient denies fevers HEENT: Patient denies headaches Cardiovascular: Patient denies chest pain Respiratory: Patient denies shortness of breath, cough GI: Patient denies abdominal pain, nausea, vomiting, diarrhea : Patient denies increased frequency or pain with urination Extremities: Patient denies swelling or pain in extremities Neurological: Patient denies numbness or tingling in legs Physical exam: Vitals: See below General: Alert and oriented male patient was sitting up in bed. Patient not appear to be in any acute distress. HEENT: Normocephalic, atraumatic, moist mucous membranes. Neck: No lymphadenopathy or thyromegaly Cardiac: Regular rate and rhythm, no murmurs, normal S1, normal S2 Pulm: Clear to auscultation bilaterally. No wheezes, rhonchi, rales Abd: Nondistended, nontender to palpation, normal bowel sounds Ext: No edema bilateral lower extremities Labs: See below Imaging: CT of the abdomen and pelvis without followed by with contrast performed on 03/01/2021 is reported to show obstructive uropathy of the right at the level of the pelvis where there is an ill-defined 3.7 cm soft tissue mass. This appears to be obstructing the adjacent right ureter. Differential possibilities include neoplastic adenopathy and primary ureteral malignancy. This lesion does not appear to be amenable to percutaneous sampling. There is a heterogeneous obstructive nephrogram raising question of a pyelonephritis on the right. Right kidney is enlarged and there is moderate hydronephrosis. Ileus pattern in the bowel gas. Very small amount of right pleural fluid. Assessment/plan: 65-year-old male presented initially with altered mental status found to be hypoxic and tachycardic earlier 2 days ago and was found to have a CHF ex acerbation who is being treated for pyelonephritis. 1. Hypoxia, improved. Patient was found to be fluid overloaded most likely secondary to the IV fluids that were given to the patient after the patient was found to be septic. Patient has improved with diuresis and his diuresis will be switched to 20 mg of p.o. Lasix at this time. 2. Obstructive uropathy. Patient had a CT done earlier today which shows a mass in the pelvis which may be obstructing the ureter. I consulted urology who will review the scans and see the patient. 3. Toxic metabolic encephalopathy secondary to right pyelonephritis. Patient appears to still hydroureter due to obstructive uropathy on CT performed today. Patient will continue with IV Zosyn at this time. 4. Elevated troponin. This is resolved and was most likely secondary to a CHF exacerbation. Echocardiogram is pending at this time. Patient is currently on full dose Lovenox which can be switched back to DVT prophylaxis at this time. 5. Diabetes mellitus. Continue to monitor the patient's blood sugars. 6. Seizure disorder. Continue current dose of Keppra. 7. Hypertension. Continue to monitor and continue home medications. 8. Hyperlipidemia. Continue atorvastatin fenofibrate. 9. Pyelonephritis. Continue on Zosyn. Continue to monitor the patient's kidney functions. 10. Acute kidney injury, resolved this time. 11. Congestive heart failure unknown ejection fraction. Echocardiogram is pending. Patient appears better compensated at this time. DVT Prophylaxis: Lovenox Disposition: Pending neurological consult. VS,Fishbone, I+O VS, Fishbone, I+O Laboratory Tests 03/01/21 05:07 Vital Signs Date Time Temp Pulse Resp B/P (MAP) Pulse Ox O2 Delivery O2 Flow Rate FiO2 03/01/21 08:00 98.3 81 20 152/72 (98) 94 Room Air 02/28/21 04:00 4.0 I&O- Last 24 Hours up to 6 AM 03/01/21 05:59 Intake Total 2480 ml Output Total 3375 ml Balance -895 ml STANFORD GOODRICH DO Mar 01, 2021 12:15
--- NOTE | 2021-03-01 12:44 | CR ---
CONSULTATION DATE: 02/27/2021 REFERRING PHYSICIAN: Dr. Farias INDICATION: Shortness of breath, elevated troponin, chest pain. HISTORY OF PRESENT ILLNESS: Mr. Ba is previously unknown to me. He is a 65-year-old gentleman who was admitted on February 23 with altered mental status that eventually was diagnosed with urosepsis. He has been treated with vigorous hydration and IV antibiotics and his condition improved but apparently earlier today he suddenly became more hypoxic and required more oxygen. It was felt that the most likely diagnosis was pulmonary embolism and he underwent a CT angiography of the chest that revealed no evidence of it but there were bilateral pleural effusions relatively small in size. His troponin became mildly elevated and the leading diagnosis at this point is congestive heart failure. It is important to note that over the last several days, his fluid balance has been grossly positive. The initial day, he was positive over four liters, the second day approximately four liters and the third day about 2.5 liters. Yesterday, the balance was approximately neutral and today it is already negative after he received a couple doses of Lasix. At bedside, the patient tells me that he is feeling about the same as he felt this morning. He is lying completely flat in bed, does not appear to be in any distress even though he is mildly tachypneic. He does admit that he is feeling short of breath somewhat but denies any chest discomfort. He does not believe that the Lasix that was administered this afternoon led to any significant change in his mental state and his respiratory status. An EKG was performed on admission that revealed bifascicular block, sinus rhythm with frequent atrial ectopy and tachycardiac rate. Apparently another EKG was performed earlier today that revealed no ischemic abnormalities but I was not able to find it in patient's chart or his electronic records. PAST MEDICAL HISTORY: 1. Type 2 diabetes of many years. 2. History of seizure disorder. 3. Hypertension. 4. Dyslipidemia. 5. 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 6. History of alcohol and tobacco use. SURGICAL HISTORY: Right femoral fracture repair. SOCIAL HISTORY: The patient tells me that he lives alone. He denies any family. He does admit that he has been a heavy smoker to these days, denies significant alcohol as of last few days or weeks. FAMILY HISTORY: Positive for COPD in his father. OUTPATIENT MEDICATIONS: 1. Aspirin 325 a day. 2. Atorvastatin 40 mg a day. 3. Buspirone 20 mg three times a day. 4. Fenofibrate 145 mg a day. 5. Gabapentin 300 mg three times a day. 6. Insulin. 7. Keppra 500 twice a day. 8. Lisinopril 40 mg a day. 9. Metformin 1 gm twice a day. 10. Potassium 10 mEq a day. 11. Ozempic injected 0.25 mg weekly. 12. Venlafaxine 150 mg daily. ALLERGIES: He has a reported intolerance of simvastatin. REVIEW OF SYSTEMS: The patient has somewhat detached affect so it is not totally easy to establish good conversation with him but he currently denies any chest discomfort, pressure or heaviness. He denies any sensation of palpitations. He denies any shaking chills. He does admit to right flank abdominal pain. The rest as per HPI or negative. PHYSICAL EXAMINATION: Mr. Ba is laying in PCU bed completely horizontal position. He does not appear to be in any distress even though he is tachypneic with respiratory rate documented around 30 breaths per minute. Last set of vital signs: Blood pressure 144/68, temperature 101.2 rectally. It was as high as 103.5 earlier this afternoon. Saturation is 95% on four liters of oxygen by nasal cannula. Heart rate is in the 90s in sinus rhythm with a wide QRS complex. Fluid balance is as per HPI. It is currently about two liters negative today. His JVP is difficult to assess due to his position and mann but it does not appear to be grossly elevated on my exam. Lungs reveal bilateral and inspiratory crackles throughout both lung soliman. I do not appreciate any wheezing. Air movement seems to be good. Heart exam reveals regular tachycardia. I do not appreciate any distant gallop, rub or murmur. Abdomen is somewhat tender over the right lower quadrant but I do not appreciate any guarding. Bowel sounds are present. Extremities are free of edema. Peripheral pulses are full equality. No trophic defect of toes or lower extremities in general. Decreased DTRs, bilateral lower extremities. Neurologically, he is certainly alert and oriented and answers all questions appropriately even though his affect is flat and somewhat detached. LABORATORY DATA: CBC as of this afternoon revealed WBC count 7.1, hemoglobin 13.2, hematocrit 37, platelet count 80,000 and differential 92% neutrophils and 8% lymphocytes. Basic metabolic panel: Sodium 138, potassium 3.6, BUN 23, creatinine 0.9 and glucose 148. Lactic acid was 1.5 this afternoon. He had several sets of troponins drawn. The initial one on admission was 0.11. This afternoon at 1:20 was 0.3 and at 1625, 0.68. CT angiography of the chest was negative for pulmonary embolism, revealed small bilateral pleural effusions. There was fatty liver and obstructive uropathy on the right. There was also a thickening of distal esophagus suggestive of esophagitis. ASSESSMENT AND PLAN: Mr. Ba is a 65-year-old man who was admitted with urosepsis on February 23 and was treated with antibiotics with gradual improvement until development of significant hypoxemia and shortness of breath earlier today. He has two troponins that are mildly elevated, denies any chest discomfort and CT is negative for pulmonary embolism. I do believe that the most likely diagnosis is indeed congestive heart failure, most likely precipitated by hydration over the last several days. The troponin elevation is of uncertain significance. In spite of apparently being obtained, I was not able to locate his EKG from earlier today and I am going request to get one EKG to be done now. He is already on aspirin and a full therapeutic dose of Lovenox. He also is getting IV diuretics. I do think that it is likely that this intervention will lead to improvement on his condition. He certainly has numerous risk factors for coronary artery disease that include a longstanding history of smoking, type 2 diabetes, hypertension and dyslipidemia. Depending on his clinical course, he will need further evaluation, most likely even cardiac catheterization but in the setting of ongoing fever and UTI, I am afraid that these options will be closed for the near future. His condition is certainly guarded but I am hopeful that with appropriate medical management he will continue to turn around and ultimately improve.
[2021-03-01 16:00] VITALS: BP 132/72
[2021-03-01 20:00] VITALS: BP 160/72
[2021-03-01] MEDS: LEVEMIR (INSULIN DETEMIR) 1 UNITS/0.01ML SC SCH (20:41)
[2021-03-02 00:15] VITALS: BP 133/64
[2021-03-02] MEDS: PIPERACILLIN/TAZOBACTAM SOD 3.375 GM in D5W MINI-BAG PLUS 50 ML IV SCH ×2 (00:38→06:42)
[2021-03-02 04:05] VITALS: BP 101/65
[2021-03-02 05:12] LABS: HEMATOCRIT 37.6 % (42.0-52.0); HEMOGLOBIN 12.8 g/dl (13.5-17.5); MEAN CORPUSCULAR HEMOGLOBIN 30.3 pg (27.0-33.0); MEAN CORPUSCULAR VOLUME 88.9 fl (80.0-96.0); PLATELET COUNT, AUTOMATED 235 10^3/uL (150-450); RED BLOOD COUNT 4.23 10^6/uL (4.30-6.10); WHITE BLOOD COUNT 8.1 10^3/uL (4.0-10.0)
[2021-03-02 05:35] LABS: BLOOD UREA NITROGEN 24 MG/DL (7-18); CALCIUM LEVEL 8.9 MG/DL (8.8-10.2); CARBON DIOXIDE LEVEL 27 MEQ/L (21-32); CHLORIDE LEVEL 107 MEQ/L (98-107); CREATININE FOR GFR 0.95 MG/DL (0.70-1.30); GLOMERULAR FILTRATION RATE > 60.0 (>49); GLUCOSE, FASTING 124 MG/DL (70-100); POTASSIUM SERUM 3.7 MEQ/L (3.5-5.1); SODIUM LEVEL 142 MEQ/L (136-145)
[2021-03-02] MEDS: ENOXAPARIN 100MG/1ML SYRINGE (J1650 PER 10MG) SC SCH (06:43)
--- NOTE | 2021-03-02 08:24 | IPNPDOC ---
Date Seen The patient was seen on 03/01/21 Progress Note pt seen yesterday evening chart reviewed seems to have presented with right pyelonephritis urine cx noted on pip/tazo no fevers yesterday wbc normal creatinine is decreasing ct report reviewed, for some reason I can't pull up the images pyelonephritis likely obstructed right ureter, ? etiology will review actual ct images creatinine has decreased no leukocytosis and no fevers cysto with retrograde and possible stent at some point no hurry at this point in time will follow pt full note to follow thank you [phone] VS, I&O, 24H, Fishbone Vital Signs/I&O Vital Signs Date Time Temp Pulse Resp B/P (MAP) Pulse Ox O2 Delivery O2 Flow Rate FiO2 03/02/21 04:05 97.5 73 20 101/65 (77) 97 Room Air 02/28/21 04:00 4.0 l I&O- Last 24 Hours up to 6 AM 03/02/21 06:00 Intake Total 1509 ml Output Total 2775 ml Balance -1266 ml Laboratory Data 24H LABS Laboratory Tests 2 03/01/21 11:53: Bedside Glucose (Misc Panel) 146H 03/01/21 16:57: Bedside Glucose (Misc Panel) 175H 03/01/21 20:34: Bedside Glucose (Misc Panel) 239H 03/02/21 05:01: Nucleated Red Blood Cells % (auto) 0.0, Anion Gap 8, Glomerular Filtration Rate > 60.0, Calcium Level 8.9 CBC/BMP Laboratory Tests 03/02/21 05:01 Microbiology Microbiology 02/23/21 Urine Culture - Final, Complete Klebsiella Pneumoniae Staphylococcus Simulans 02/23/21 Blood Culture - Final, Complete NO GROWTH AFTER 5 DAYS 02/23/21 Blood Culture - Final, Complete NO GROWTH AFTER 5 DAYS ROSE LAMB MD Mar 02, 2021 08:24
[2021-03-02 08:27] VITALS: BP 138/65
[2021-03-02] MEDS: POTASSIUM CHLORIDE 10 MEQ SR TABLET PO SCH (08:34)
[2021-03-02] MEDS: ASPIRIN 325 MG TAB PO SCH (08:34)
[2021-03-02] MEDS: HumaLOG INSULIN (NovoLOG) PER UNIT SC SCH ×4 (08:34→21:00)
[2021-03-02] MEDS: OMEGA-3 1000MG CAPSULE PO SCH (08:34)
[2021-03-02] MEDS: VENLAFAXINE **XR** 75MG CAPSULE PO SCH (08:34)
[2021-03-02] MEDS: ATORVASTATIN 20 MG TAB PO SCH (08:34)
[2021-03-02] MEDS: lisinopriL 40 MG TAB PO SCH (08:34)
[2021-03-02] MEDS: levETIRAcetam 250MG TABLET (KEPPRA) PO SCH ×2 (08:34→21:30)
[2021-03-02] MEDS: TAMSULOSIN 0.4 MG CAP PO SCH (08:35)
[2021-03-02] MEDS: FUROSEMIDE 20 MG TAB PO SCH (08:35)
[2021-03-02] MEDS ORDERED: FLOM0.4C39 PO (10:12)
[2021-03-02] MEDS ORDERED: BACTDSTA PO (10:12)
[2021-03-02] MEDS ORDERED: FURO20TA2 PO (10:12)
[2021-03-02] MEDS: BACTRIM 160MG/800MG DS TAB PO SCH ×2 (10:13→21:30)
--- NOTE | 2021-03-02 11:46 | DS.PDOC ---
Discharge Summary General Date of Admission Feb 23, 2021 at 18:45 Date of Discharge 03/06/2021 Attending Physician: STANFORD GOODRICH DO Specialist/Consultants Involve: Asya Mcneal MD Specialist/Consultants Involve Neil Mathur MD, urology Discharge Summary PROCEDURES PERFORMED DURING STAY: None. ADMITTING DIAGNOSES: 1. Altered mental status. 2. Type 2 diabetes 3. Hydronephrosis 4. Tachycardia 5. Lactic acidosis 6. Seizure disorder 7. Alcohol abuse, unspecified 8. Fall DISCHARGE DIAGNOSES: 1. Metabolic encephalopathy secondary to sepsis secondary to right pyelonephritis 2. Hypoxia, improved 3. Congestive heart failure exacerbation unknown ejection fraction, echocardiogram pending 4. Obstructive uropathy 5. Elevated troponin, resolved 6. Diabetes mellitus 7. Seizure disorder 8. Hypertension 9. Hyperlipidemia 10. Pyelonephritis 11. Acute kidney injury, resolved COMPLICATIONS/CHIEF COMPLAINT: Altered Mental Status,Uncontrolled Diabetes Type 2. HISTORY OF PRESENT ILLNESS: Patient is a 65-year-old female from a long-term community apparently been having some difficulties with his IADLs recently who p resented to the emergency department via EMS after falling and said he was going to bed at 3 PM the afternoon before his admission. His neighbors could not see him around his apartment today, 02/23/2021 so they called EMS to do a safety check. Patient was found in his bed responsive but not coherent. Patient was brought to the emergency department for further evaluation and treatment. There is concern raised at one point they may be taking too much gabapentin or Flexeril but it is not clear who raises concern if there is any evidence to support this. HOSPITAL COURSE: Patient was found to have a urinary tract infection and on CT scan of the abdomen and pelvis it was shown that the patient had hydronephrosis on the right side and apparently had a recent ureterolithiasis that had descende d into the bladder. Patient began to be more tachycardic and had a lactic acidosis and met sepsis criteria. Patient was started on the 30 cc/kg's bolus and was started on broad-spectrum antibiotics. Patient's antibiotics were narrowed to just Zosyn after urinary source was the most likely source. Patient had a urinary catheter placed for critical monitoring. Patient continued to get better and with fluid resuscitation his blood pressure and other vital signs had normalized. Patient was doing better and cleared physical therapy and was going to be discharged on 02/27/2021 however, in the morning after his catheter have been removed, patient was having difficulty voiding and became very tachycardic into the 120s and 130s and was tachypneic and hypoxic. Patient had troponins done which were mildly elevated. The initial thought was the patient had a pulmonary embolism so CT angiogram was performed and was negative. This did show the patient to have pleural effusions were that were not seen on prior imaging and the patient was started on IV Lasix. Cardiology was consulted as patient's troponin continued to rise to a maximum of 0.68. Patient's troponin did decrease after a few doses of Lasix and after 36 hours of Lasix the troponin was back to normal. Patient was placed on therapeutic doses of Lovenox for possible NSTEMI however, this was discontinued after the patient's troponin decreased with diuresis. Echocardiogram was ordered and is pending. Patient was feeling better. Patient was found initially to have a mass that could pose possibly adenopathy although it was not fully imaged due to the CT initially being without contrast. CT the abdomen pelvis with IV contrast performed on 03/01/2021 showed that this mass was possibly impinging on the right ureter causin g obstructive uropathy. Urology was consulted who stated that the patient can be treated outpatient. Because the patient was having urinary retention on 02/27/2021 urinary catheter was placed back and the patient will be going home with a urinary catheter. Patient was going to be sent home on 03/02/2021 however, the patient's caregiver is unable to take care of the patient as the patient was still having some diarrhea. There is a possibility the patient would go to a long term facility however, the patient's diarrhea slowed down and the patient was able to go back home to his food and beverage assistant. Patient was deemed ready for discharge and was discharged home on 03/06/2021 with services. DISCHARGE MEDICATIONS: Please see below. ALLERGIES: Please see below. PHYSICAL EXAMINATION ON DISCHARGE: VITAL SIGNS: Please see below. General: Alert and oriented male patient who was laying in bed when I walked in the room. Patient not appear to be in any acute distress. HEENT: Normocephalic, atraumatic, moist mucous membranes. Neck: No lymphadenopathy or thyromegaly Cardiac: Regular rate and rhythm, no murmurs, normal S1, normal S2 Pulm: Clear to auscultation bilaterally. No wheezes, rhonchi, rales Abd: Nondistended, nontender to palpation, normal bowel sounds Ext: No edema bilateral lower extremities LABORATORY DATA: Please see below. IMAGING: Head CT performed without contrast on 02/23/2021 is reported to show atrophy and microvascular ischemic changes. No acute intracranial hemorrhage, infarction, or mass/mass-effect. CT of the cervical spine performed without contrast on 02/23/2021 is reported to show no evidence for acute fracture/compression injury or subluxation. Advanced multilevel degenerative spondylosis. Chest x-ray performed on 02/23/2021 was reported to show no acute cardiopulmonary process appreciated. CT the abdomen pelvis performed without contrast on 02/23/2021 is reported to show moderate right hydroureter and hydronephrosis. Right perinephric stranding and renal swelling. 2 mm dependent calculus in the bladder, likely recently passed. Correlate for accompanying cystitis and pyelonephritis. Ill-defined soft tissue adjacent to the right internal iliac artery measuring 4 x 2.2 x 4.5 cm consider follow-up. Question adenopathy or other lesion or neoplasm. Chest CT performed without contrast on 02/23/2021 was reported to show prominent esophageal thickening, correlate. Renal ultrasound performed on 02/24/2021 is reported to show mild fullness of the right renal collecting system without significant hydronephrosis. Findings appear improved when correlated with recent CT. Chest x-ray performed on 02/27/2021 is ordered to show mild right basilar discoid atelectasis without evidence of acute infiltrate. CT angiogram of the chest was performed on 02/27/2021 is reported to show no CT evidence of pulmonary embolus. Small bilateral pleural effusions. Fatty infiltration of the liver. Obstructive uropathy again noted in the right kidney with regional impairment of contrast enhancement in the upper pole of the right kidney. Elongated segment of mural thickening in the distal esophagus suggestive of esophagitis. CT of the abdomen and pelvis without followed by with contrast performed on 03/01/2021 is reported to show obstructive uropathy of the right at the level of the pelvis where there is an ill-defined 3.7 cm soft tissue mass. This appears to be obstructing the adjacent right ureter. Differential possibilities include neoplastic adenopathy and primary ureteral malignancy. This lesion does not appear to be amenable to percutaneous sampling. There is a heterogeneous obstructive nephrogram raising question of a pyelonephritis on the right. Right kidney is enlarged and there is moderate hydronephrosis. Ileus pattern in the bowel gas. Very small amount of right pleural fluid. PROGNOSIS: Fair ACTIVITY: As tolerated. DIET: Consistent carbohydrate DISCHARGE PLAN: Discharge home with home health services DISPOSITION: , home with home health service DISCHARGE INSTRUCTIONS: 1. Follow-up with primary care provider within 5 to 7 days of discharge. 2. Follow-up with cardiology within 1 to 2 weeks of discharge 3. Follow-up with Dr. Mathur of urology as instructed 4. Perform catheter care as instructed by the nurses 5. Take Bactrim 1 pill twice a day for the next 7 days 6. Begin taking furosemide and tamsulosin daily in the morning 7. Return to the emergency department if your symptoms worsen. ITEMS TO FOLLOWUP ON ON OUTPATIENT: 1. Follow-up on catheter care and urological consultation.. DISCHARGE CONDITION: Stable. TIME SPENT ON DISCHARGE: 40 minutes. Vital Signs/I&Os Vital Signs Date Time Temp Pulse Resp B/P (MAP) Pulse Ox O2 Delivery O2 Flow Rate FiO2 03/02/21 08:27 97.2 79 20 138/65 (89) 95 Room Air 02/28/21 04:00 4.0 I&O- Last 24 Hours up to 6 AM 03/02/21 06:00 Intake Total 1509 ml Output Total 2775 ml Balance -1266 ml Laboratory Data Labs 24H Laboratory Tests 2 03/01/21 11:53: Bedside Glucose (Misc Panel) 146H 03/01/21 16:57: Bedside Glucose (Misc Panel) 175H 03/01/21 20:34: Bedside Glucose (Misc Panel) 239H 03/02/21 05:01: Nucleated Red Blood Cells % (auto) 0.0, Anion Gap 8, Glomerular Filtration Rate > 60.0, Calcium Level 8.9 CBC/BMP Laboratory Tests 03/02/21 05:01 FSBS Laboratory Tests Test 03/01/21 11:53 03/01/21 16:57 03/01/21 20:34 Range/Units Bedside Glucose (Misc Panel) 146 175 239 80-115 MG/DL Microbiology Microbiology 02/23/21 Urine Culture - Final, Complete Klebsiella Pneumoniae Staphylococcus Simulans 02/23/21 Blood Culture - Final, Complete NO GROWTH AFTER 5 DAYS 02/23/21 Blood Culture - Final, Complete NO GROWTH AFTER 5 DAYS Discharge Medications Scheduled Aspirin (Aspirin) 325 Mg Tablet, 325 MG PO DAILY, (Reported) Atorvastatin Calcium (Atorvastatin Calcium) 40 Mg Tablet, 40 MG PO DAILY, (Reported) Buspirone HCl (Buspirone HCl) 10 Mg Tablet, 20 MG PO TID, (Reported) Fenofibrate Nanocrystallized (Fenofibrate) 145 Mg Tablet, 145 MG PO DAILY, (Reported) Furosemide (Furosemide) 20 Mg Tablet, 1 TAB PO DAILY Gabapentin (Gabapentin) 300 Mg Capsule, 600 MG PO TID, (Reported) Insulin Glargine,Hum.rec.anlog (Lantus Solostar) 100 Unit/1 Ml Insuln.pen, 30 UNITS SC QHS, (Reported) Levetiracetam (Keppra) 500 Mg Tablet, 500 MG PO BID, (Reported) Lisinopril (Lisinopril) 40 Mg Tablet, 40 MG PO DAILY, (Reported) Metformin HCl (Metformin HCl) 1,000 Mg Tablet, 1,000 MG PO BID, (Reported) [place]-3/Dha/Epa/Fish Oil ([place]-3 Fish Oil 1,000 mg Sfgl) 1,000 Mg Capsule, 2,000 MG PO DAILY, (Reported) Potassium Chloride (Potassium Chloride) 10 Meq Tab.er.prt, 10 MEQ PO DAILY, (Reported) Semaglutide (Ozempic) 0.25 Mg/0.2 Ml Pen.injctr, 0.25 MG SC 1XWK, (Reported) 0.25 MG WEEKLY FOR 4 WEEKS THEN INCREASE TO 0.5MG WEEKLY Tamsulosin HCl (Flomax) 0.4 Mg Capsule, 0.4 MG PO DAILY Venlafaxine HCl (Venlafaxine HCl ER) 150 Mg Cap.er.24h, 150 MG PO DAILY, (Reported) Scheduled PRN Cyclobenzaprine HCl (Cyclobenzaprine HCl) 5 Mg Tablet, 5 MG PO Q8H PRN for MUSCLE SPASMS, (Reported) Docusate Sodium (Docusate Sodium) 100 Mg Capsule, 100 MG PO BID PRN for CONSTIPATION, (Reported) Lorazepam (Ativan) 0.5 Mg Tablet, 0.5 MG PO BID PRN for ANXIETY, (Reported) Allergies Coded Allergies: simvastatin (Verified Allergy, Unknown, 02/23/21) STANFORD GOODRICH DO Mar 02, 2021 11:46
--- NOTE | 2021-03-02 13:43 | IPNPDOC ---
Text Note Date of Service The patient was seen on 03/02/21. NOTE Subjective: Patient is a 65-year-old male initially came in altered mental sta tus found to be septic secondary to urinary tract infection with right kidney showing hydronephrosis. Patient is feeling much better today. Patient denies any shortness of breath or chest pain. Patient says the pain in his right flank is also improved. Patient is otherwise doing well and is wondering if he can go home today. Review of systems: General: Patient denies fevers HEENT: Patient denies headaches Cardiovascular: Patient denies chest pain Respiratory: Patient denies shortness of breath, cough GI: Patient denies abdominal pain, nausea, vomiting, diarrhea : Patient denies increased frequency or pain with urination Extremities: Patient denies swelling or pain in extremities Neurological: Patient denies numbness or tingling in legs Physical exam: Vitals: See below General: Alert and oriented male patient who was laying in bed when I walked in the room. Patient did not appear to be in any acute distress. HEENT: Normocephalic, atraumatic, moist mucous membranes. Neck: No lymphadenopathy or thyromegaly Cardiac: Regular rate and rhythm, no murmurs, normal S1, normal S2 Pulm: Clear to auscultation bilaterally. No wheezes, rhonchi, rales Abd: Nondistended, nontender to palpation, normal bowel sounds Ext: No edema bilateral lower extremities Labs: See below Imaging: No new imaging has been performed. Assessment/plan: 65-year-old male initially presented with altered mental status found to be hypoxic and tachycardic earlier 3 days ago and was found to have CHF exace rbation who was being treated for pyelonephritis. 1. Congestive heart failure exacerbation, patient was found to have fluid overload mostly secondary to IV fluids given to him due to sepsis. Patient improved diuresis will be on 20 mg p.o. Lasix at this time. 2. Obstructive uropathy. Patient had CT earlier yesterday which showed a mass in the pelvis which may be obstructing the ureter. Urology saw the patient and states that nothing needs to be done in the hospital. Patient was going to be discharged today but see below. 3. Toxic metabolic encephalopathy secondary to right pyelonephritis. Patient is doing better. We will switch the patient to p.o. Bactrim. 4. Elevated troponin. This resolved and was most likely secondary to CHF exacerbation. Patient has been switched to DVT prophylaxis Lovenox at this time. 5. Diabetes mellitus. Continue to monitor patient blood sugar. 6. Seizure disorder. Continue Keppra. 7. Hypertension. Continue home medications. 8. Hyperlipidemia. Continue atorvastatin and fenofibrate. 9. Pyelonephritis. Stop Zosyn continue Bactrim. 10. Acute kidney injury, resolved this time. DVT Prophylaxis: Lovenox Disposition: Patient was going to be discharged today however, patient has been having some diarrhea which is most likely antibiotic induced and the patient's caregiver states that she is unable to care for him because of this. Patient will be held in the hospital and switch to ALC status at this time as the patient is ready from discharge standpoint medically. We will start the patient on probiotic and see if he is able to be more continent of stool in order to go back to the discharge plan that was previously made on Friday prior to the patient's heart failure exacerbation. VS,Reece, I+O VS, Carolee, I+O Laboratory Tests 03/02/21 05:01 Vital Signs Date Time Temp Pulse Resp B/P (MAP) Pulse Ox O2 Delivery O2 Flow Rate FiO2 03/02/21 08:27 97.2 79 20 138/65 (89) 95 Room Air 02/28/21 04:00 4.0 I&O- Last 24 Hours up to 6 AM 03/02/21 06:00 Intake Total 1509 ml Output Total 2775 ml Balance -1266 ml STANFORD GOODRICH DO Mar 02, 2021 13:43
[2021-03-02] MEDS: LACTOBACILLUS ACIDOPHILUS CAP (BACID) PO SCH (17:33)
[2021-03-02 20:00] VITALS: BP 144/73
[2021-03-02] MEDS: LEVEMIR (INSULIN DETEMIR) 1 UNITS/0.01ML SC SCH (21:39)
[2021-03-03] VITALS: BP 130/60
[2021-03-03 06:23] LABS: HEMATOCRIT 39.5 % (42.0-52.0); HEMOGLOBIN 13.5 g/dl (13.5-17.5); MEAN CORPUSCULAR HEMOGLOBIN 30.5 pg (27.0-33.0); MEAN CORPUSCULAR HGB CONC 34.2 g/dl (32.0-36.5); MEAN CORPUSCULAR VOLUME 89.2 fl (80.0-96.0); PLATELET COUNT, AUTOMATED 269 10^3/uL (150-450); RED BLOOD COUNT 4.43 10^6/uL (4.30-6.10); WHITE BLOOD COUNT 8.6 10^3/uL (4.0-10.0)
[2021-03-03 06:46] LABS: BLOOD UREA NITROGEN 22 MG/DL (7-18); CALCIUM LEVEL 8.7 MG/DL (8.8-10.2); CARBON DIOXIDE LEVEL 25 MEQ/L (21-32); CHLORIDE LEVEL 106 MEQ/L (98-107); CREATININE FOR GFR 0.96 MG/DL (0.70-1.30); GLOMERULAR FILTRATION RATE > 60.0 (>49); GLUCOSE, FASTING 185 MG/DL (70-100); POTASSIUM SERUM 4.1 MEQ/L (3.5-5.1); SODIUM LEVEL 137 MEQ/L (136-145)
[2021-03-03 08:06] VITALS: BP 119/60
[2021-03-03] MEDS: ASPIRIN 325 MG TAB PO SCH (08:09)
[2021-03-03] MEDS: LACTOBACILLUS ACIDOPHILUS CAP (BACID) PO SCH ×2 (08:10→18:10)
[2021-03-03] MEDS: FUROSEMIDE 20 MG TAB PO SCH (08:10)
[2021-03-03] MEDS: lisinopriL 40 MG TAB PO SCH (08:10)
[2021-03-03] MEDS: levETIRAcetam 250MG TABLET (KEPPRA) PO SCH ×2 (08:10→21:26)
[2021-03-03] MEDS: TAMSULOSIN 0.4 MG CAP PO SCH (08:10)
[2021-03-03] MEDS: ATORVASTATIN 20 MG TAB PO SCH (08:10)
[2021-03-03] MEDS: POTASSIUM CHLORIDE 10 MEQ SR TABLET PO SCH (08:10)
[2021-03-03] MEDS: VENLAFAXINE **XR** 75MG CAPSULE PO SCH (08:10)
[2021-03-03] MEDS: OMEGA-3 1000MG CAPSULE PO SCH (08:10)
[2021-03-03] MEDS: ENOXAPARIN 40MG/0.4ML SYRINGE (J1650 PER 10MG) SC SCH (08:11)
[2021-03-03] MEDS: BACTRIM 160MG/800MG DS TAB PO SCH ×2 (08:11→21:26)
[2021-03-03] MEDS: HumaLOG INSULIN (NovoLOG) PER UNIT SC SCH ×4 (08:11→21:00)
[2021-03-03 15:48] VITALS: BP 129/71
[2021-03-03 20:00] VITALS: BP 116/56
[2021-03-03] MEDS: LEVEMIR (INSULIN DETEMIR) 1 UNITS/0.01ML SC SCH (21:27)
[2021-03-04 05:23] LABS: HEMATOCRIT 39.7 % (42.0-52.0); HEMOGLOBIN 13.7 g/dl (13.5-17.5); MEAN CORPUSCULAR HEMOGLOBIN 30.5 pg (27.0-33.0); MEAN CORPUSCULAR HGB CONC 34.5 g/dl (32.0-36.5); MEAN CORPUSCULAR VOLUME 88.4 fl (80.0-96.0); PLATELET COUNT, AUTOMATED 246 10^3/uL (150-450); RED BLOOD COUNT 4.49 10^6/uL (4.30-6.10); WHITE BLOOD COUNT 8.8 10^3/uL (4.0-10.0)
[2021-03-04 05:47] LABS: BLOOD UREA NITROGEN 23 MG/DL (7-18); CALCIUM LEVEL 8.6 MG/DL (8.8-10.2); CARBON DIOXIDE LEVEL 25 MEQ/L (21-32); CHLORIDE LEVEL 106 MEQ/L (98-107); CREATININE FOR GFR 1.06 MG/DL (0.70-1.30); GLOMERULAR FILTRATION RATE > 60.0 (>49); GLUCOSE, FASTING 137 MG/DL (70-100); POTASSIUM SERUM 4.2 MEQ/L (3.5-5.1); SODIUM LEVEL 137 MEQ/L (136-145)
[2021-03-04 08:03] VITALS: BP 123/55
[2021-03-04] MEDS: ASPIRIN 325 MG TAB PO SCH (08:59)
[2021-03-04] MEDS: levETIRAcetam 250MG TABLET (KEPPRA) PO SCH ×2 (08:59→20:36)
[2021-03-04] MEDS: VENLAFAXINE **XR** 75MG CAPSULE PO SCH (08:59)
[2021-03-04] MEDS: HumaLOG INSULIN (NovoLOG) PER UNIT SC SCH ×4 (08:59→20:37)
[2021-03-04] MEDS: ENOXAPARIN 40MG/0.4ML SYRINGE (J1650 PER 10MG) SC SCH (08:59)
[2021-03-04] MEDS: LACTOBACILLUS ACIDOPHILUS CAP (BACID) PO SCH ×2 (08:59→18:40)
[2021-03-04] MEDS: ATORVASTATIN 20 MG TAB PO SCH (09:00)
[2021-03-04] MEDS: lisinopriL 40 MG TAB PO SCH (09:00)
[2021-03-04] MEDS: FUROSEMIDE 20 MG TAB PO SCH (09:00)
[2021-03-04] MEDS: POTASSIUM CHLORIDE 10 MEQ SR TABLET PO SCH (09:00)
[2021-03-04] MEDS: BACTRIM 160MG/800MG DS TAB PO SCH ×2 (09:00→20:36)
[2021-03-04] MEDS: TAMSULOSIN 0.4 MG CAP PO SCH (09:00)
[2021-03-04] MEDS: OMEGA-3 1000MG CAPSULE PO SCH (09:00)
--- NOTE | 2021-03-04 11:48 | ECHO ---
ECHOCARDIOGRAM DATE OF PROCEDURE: 02/28/2021 Age: 65 Gender: Male Height: 183 cm Weight: 90 kg REFERRING PROVIDER: Asya Mcneal M.D. PATIENT LOCATION: Room 3216. REASON FOR THE STUDY: Heart murmur. MEASUREMENTS: 2D Measurements: IVS 0.9 cm LVPW 0.8 cm LV 5.0 cm Aortic root 3.8 cm Left atrium 2.9 cm Doppler Measurements: Peak velocity across the aortic valve 1.2 m/sec Peak velocity across the LVOT 1.3 m/sec Mitral E 0.7 Mitral A 0.8 with a ratio of 0.9 2D COMMENTS: 1. Normal left ventricular size, wall thickness and normal global left ventricular systolic function. The estimated left ventricular systolic ejection fraction is 60-65%. 2. Normal left atrium. Normal right atrium and right ventricle. 3. The atrial septum appeared to be normal without evidence of defect or shunt. 4. Mildly dilated aortic root at 3.8 cm. 5. No pericardial effusion seen. 6. Mildly calcified aortic valve with normal leaflet excursion. Normal mitral valve and tricuspid valve. The pulmonic valve and pulmonary artery branches were not well visualized. 7. The inferior vena cava was not visualized. DOPPLER: It detects mild aortic regurgitation. Abnormal relaxation pattern was noted across the mitral valve leaflets as well as the mitral valve annulus consistent with features of grade 1 diastolic dysfunction. IMPRESSION: 1. Normal global left ventricular systolic function. There are some features of grade 1 left ventricular diastolic dysfunction manifested by abnormal relaxation. 2. Aortic valve sclerosis with mild aortic valve regurgitation, but no aortic stenosis. 3. Mildly dilated aortic root at 3.8 cm.
[2021-03-04 14:00] VITALS: BP 122/58
[2021-03-04] MEDS: LEVEMIR (INSULIN DETEMIR) 1 UNITS/0.01ML SC SCH (20:36)
[2021-03-04 22:00] VITALS: BP 128/61
[2021-03-05 06:00] VITALS: BP 118/57
[2021-03-05] MEDS: TAMSULOSIN 0.4 MG CAP PO SCH (09:09)
[2021-03-05] MEDS: POTASSIUM CHLORIDE 10 MEQ SR TABLET PO SCH (09:09)
[2021-03-05] MEDS: ATORVASTATIN 20 MG TAB PO SCH (09:09)
[2021-03-05] MEDS: VENLAFAXINE **XR** 75MG CAPSULE PO SCH (09:09)
[2021-03-05] MEDS: HumaLOG INSULIN (NovoLOG) PER UNIT SC SCH ×4 (09:09→20:45)
[2021-03-05] MEDS: FUROSEMIDE 20 MG TAB PO SCH (09:10)
[2021-03-05] MEDS: LACTOBACILLUS ACIDOPHILUS CAP (BACID) PO SCH ×2 (09:10→17:49)
[2021-03-05] MEDS: levETIRAcetam 250MG TABLET (KEPPRA) PO SCH ×2 (09:10→20:44)
[2021-03-05] MEDS: OMEGA-3 1000MG CAPSULE PO SCH (09:10)
[2021-03-05] MEDS: BACTRIM 160MG/800MG DS TAB PO SCH ×2 (09:10→20:44)
[2021-03-05] MEDS: lisinopriL 40 MG TAB PO SCH (09:10)
[2021-03-05] MEDS: ASPIRIN 325 MG TAB PO SCH (09:10)
[2021-03-05] MEDS: ENOXAPARIN 40MG/0.4ML SYRINGE (J1650 PER 10MG) SC SCH (09:11)
[2021-03-05] MEDS: LEVEMIR (INSULIN DETEMIR) 1 UNITS/0.01ML SC SCH (20:44)
[2021-03-06 06:00] VITALS: BP 109/48
[2021-03-06] MEDS: HumaLOG INSULIN (NovoLOG) PER UNIT SC SCH ×2 (08:56→12:20)
[2021-03-06] MEDS: levETIRAcetam 250MG TABLET (KEPPRA) PO SCH (08:56)
[2021-03-06] MEDS: POTASSIUM CHLORIDE 10 MEQ SR TABLET PO SCH (08:56)
[2021-03-06] MEDS: BACTRIM 160MG/800MG DS TAB PO SCH (08:56)
[2021-03-06] MEDS: ASPIRIN 325 MG TAB PO SCH (08:56)
[2021-03-06] MEDS: TAMSULOSIN 0.4 MG CAP PO SCH (08:56)
[2021-03-06] MEDS: OMEGA-3 1000MG CAPSULE PO SCH (08:56)
[2021-03-06] MEDS: LACTOBACILLUS ACIDOPHILUS CAP (BACID) PO SCH (08:57)
[2021-03-06] MEDS: VENLAFAXINE **XR** 75MG CAPSULE PO SCH (08:57)
[2021-03-06] MEDS: FUROSEMIDE 20 MG TAB PO SCH (08:57)
[2021-03-06] MEDS: ATORVASTATIN 20 MG TAB PO SCH (08:57)
[2021-03-06] MEDS: ENOXAPARIN 40MG/0.4ML SYRINGE (J1650 PER 10MG) SC SCH (08:59)
[2021-03-06] MEDS: lisinopriL 40 MG TAB PO SCH (08:59)
[2021-03-06] MEDS ORDERED: FLOM0.4C39 PO (14:36)
[2021-03-06] MEDS ORDERED: FURO20TA2 PO (14:36)
== END 2021-03-06 15:45 | disposition home health service (06) | DRG 871 ==
LOC: EDBD 14:25 → M ED 14:25 → M ED INP 18:45 → ENRESERV 21:04 → M ICU 22:00 → M MSPAV 02-26 13:30 → M PCU 02-27 19:04 → M MSPAV 03-04 14:56
PROVIDERS: ADMIT Family Medicine; ATTEND Family Medicine
DX: A41.9 Sepsis, unspecified organism (principal); G93.41 Metabolic encephalopathy; N13.6 Pyonephrosis; E87.2 Acidosis; N17.9 Acute kidney failure, unspecified; E11.65 Type 2 diabetes mellitus with hyperglycemia; R41.82 Altered mental status, unspecified; G40.909 Epilepsy, unspecified, not intractable, without status epilepticus; F10.10 Alcohol abuse, uncomplicated; Z20.822 Contact with and (suspected) exposure to COVID-19; E11.42 Type 2 diabetes mellitus with diabetic polyneuropathy; Z79.82 Long term (current) use of aspirin; Z79.899 Other long term (current) drug therapy; Z79.4 Long term (current) use of insulin; Z88.8 Allergy status to other drugs, medicaments and biological substances; E86.0 Dehydration; I11.0 Hypertensive heart disease with heart failure; B96.1 Klebsiella pneumoniae [K. pneumoniae] as the cause of diseases classified elsewhere; R09.02 Hypoxemia; I50.9 Heart failure, unspecified; F17.200 Nicotine dependence, unspecified, uncomplicated

== ENCOUNTER → 2021-03-09 | Outpatient (REF) | payer MEDICARE ==
[~2021-03-09] MED LIST changes: +ATIV1TAB10 PO; +ATOR40TA75 PO; +BACTDSTA PO; +BAYE325T12 PO; +BUSP10TA PO; +CYCL5TAB PO; +DOCU100C16 PO; +FENO145T7 PO; +FLOM0.4C39 PO; +FURO20TA2 PO; +GABA-282 PO; +KEPP1TAB PO; +LANTINJ4 SC; +LISI40TA4 PO; +METF10004 PO; +OMEGCAP4 PO; +OZEM2INJ SC; +POTA10TA17 PO; +VENL150C43 PO
[2021-03-09 11:27] LABS: HEMATOCRIT 40.1 % (42.0-52.0); HEMOGLOBIN 13.5 g/dl (13.5-17.5); MEAN CORPUSCULAR HEMOGLOBIN 30.4 pg (27.0-33.0); MEAN CORPUSCULAR HGB CONC 33.7 g/dl (32.0-36.5); MEAN CORPUSCULAR VOLUME 90.3 fl (80.0-96.0); PLATELET COUNT, AUTOMATED 398 10^3/uL (150-450); RED BLOOD COUNT 4.44 10^6/uL (4.30-6.10); WHITE BLOOD COUNT 6.5 10^3/uL (4.0-10.0)
[2021-03-09 11:47] LABS: APPEARANCE, URINE CLEAR (CLEAR); BACTERIA, URINE AUTO NEGATIVE (NEGATIVE); BILIRUBIN, URINE AUTO NEGATIVE (NEGATIVE); BLOOD, URINE BLOOD 1+ (NEGATIVE); COLOR, URINE STRAW (YELLOW); GLUCOSE, URINE (UA) AUTO 1+ mg/dL (NEGATIVE); KETONE, URINE AUTO NEGATIVE (NEGATIVE); LEUKOCYTE ESTERASE, URINE AUTO NEGATIVE (NEGATIVE); MUCUS, URINE SMALL (NEGATIVE); NITRITE, URINE AUTO NEGATIVE (NEGATIVE); PROTEIN, URINE AUTO NEGATIVE (NEGATIVE); RBC, URINE AUTO 2 /HPF (0-3); SPECIFIC GRAVITY URINE AUTO 1.008 (1.002-1.035); SQUAMOUS EPITHELIAL CELL UR AU 0 /HPF (0-6); UROBILINOGEN, URINE AUTO 0.2 mg/dL (0.0-2.0); WBC, URINE AUTO 1 /HPF (0-3)
[2021-03-09 11:55] LABS: HEMOGLOBIN A1c 8.4 %
[2021-03-09 12:02] LABS: ATYPICAL LYMPH 1 % (0-5); LYMPHOCYTES 42 % (16-44); MONOCYTES 7 % (0-5); NEUTROPHILS 50 % (28-66)
[2021-03-09 12:03] LABS: PLATELET ESTIMATE NORMAL (NORMAL)
[2021-03-09 12:04] LABS: SPHEROCYTES 2+
[2021-03-09 12:20] LABS: ALBUMIN 2.8 GM/DL (3.2-5.2); ALT/SGPT 58 U/L (12-78); BILIRUBIN,TOTAL 0.3 MG/DL (0.2-1.0); BLOOD UREA NITROGEN 44 MG/DL (7-18); CALCIUM LEVEL 9.3 MG/DL (8.8-10.2); CARBON DIOXIDE LEVEL 21 MEQ/L (21-32); CHLORIDE LEVEL 100 MEQ/L (98-107); CHOLESTEROL LEVEL 142 MG/DL (<200); CHOLESTEROL RISK RATIO 7.473 (<5); CREATININE FOR GFR 1.36 MG/DL (0.70-1.30); GLOMERULAR FILTRATION RATE 55.8 (>49); GLUCOSE, FASTING 302 MG/DL (70-100); HDL CHOLESTEROL 19 MG/DL (>40); NON-HDL-C 123 MG/DL; SODIUM LEVEL 130 MEQ/L (136-145); TOTAL PROTEIN 8.1 GM/DL (6.4-8.2); TRIGLYCERIDES LEVEL 546 MG/DL (<150)
[2021-03-09 12:27] LABS: CREATININE, URINE 31.5 MG/DL; MALB URINE SIEMENS 16.3 MG/L; MAU/CREAT RATIO 51.7 MCG/MG (0.0-30.0)
== END ==
LOC: M LAB REF 11:11
PROVIDERS: ATTEND Physician Assistant Medical
DX: Z00.00 Encounter for general adult medical examination without abnormal findings (principal)

== ENCOUNTER → 2021-05-10 | Outpatient (CLI) | payer MEDICARE ==
[~2021-05-10] MED LIST changes: +D31000TA2 PO; +NOVOINJ2 SC; +VITA-243 PO; +[UNRECOGNIZED DRUG - CODE] PO
== END ==
LOC: M LABSMTC 10:12
PROVIDERS: ATTEND Anesthesiology
DX: Z01.818 Encounter for other preprocedural examination (principal); Z11.52 Encounter for screening for COVID-19

== ENCOUNTER → 2021-06-04 | Outpatient (CLI) | payer MEDICARE | LOC: M LABSMTC 09:39 | PROVIDERS: ATTEND Anesthesiology | DX: Z01.818 Encounter for other preprocedural examination (principal); Z11.52 Encounter for screening for COVID-19 ==

== ENCOUNTER 2021-06-08 09:16 | Day surgery (SDC) | payer MEDICARE ==
[~2021-06-08] VITALS: Ht 180.3 cm; Wt 93.7 kg
[~2021-06-08 09:16] MED LIST changes: +CIPROFLOXACIN 400 MG in IV 1 EA IV ONE; +LR 1,000 ML IV ONE
[2021-06-08] MEDS ORDERED: HumaLOG INSULIN (NovoLOG) PER UNIT SC ONE ×2 (12:10→13:50)
[2021-06-08] MEDS ORDERED: CONRAY-60 60% 50ML VIAL (Q9961) As Ordered ONE (12:27)
[2021-06-08] MEDS ORDERED: MIDAZOLAM INJ 2MG/2ML VIAL (J2250 PER 1MG) As Ordered ONE (13:06)
[2021-06-08] MEDS ORDERED: fentaNYL 100 MCG/2 ML INJECTION As Ordered ONE (13:06)
[2021-06-08] MEDS ORDERED: ONDANSETRON 4MG/2ML VIAL As Ordered ONE (13:06)
[2021-06-08] MEDS ORDERED: propofoL 200 MG/20 ML VIAL As Ordered ONE (13:06)
[2021-06-08] MEDS ORDERED: dexameTHASONE 4 MG/ML 1ML VIAL (J1100 PER 1MG) As Ordered ONE (13:06)
[2021-06-08] MEDS ORDERED: LIDOCAINE 2% 100MG/5ML SDV (FOR ANES.) As Ordered ONE (13:06)
[2021-06-08] MEDS ORDERED: ACETAMINOPHEN 1000MG 100ML IV BTL (OFIRMEV) (J0131 PER 10MG) As Ordered ONE (13:06)
[2021-06-08] MEDS ORDERED: BACT800T5 PO (13:43)
[2021-06-08] MEDS ORDERED: HYDR-3713 PO (13:43)
[2021-06-08] MEDS ORDERED: PYRI1TAB5 PO (13:43)
[2021-06-08] MEDS ORDERED: oxyCODONE 5MG TAB PO PRN (13:50)
[2021-06-08] MEDS ORDERED: ONDANSETRON 4MG/2ML VIAL IV PRN (13:50)
[2021-06-08] MEDS ORDERED: fentaNYL 100 MCG/2 ML INJECTION IV PRN (13:50)
[2021-06-08] MEDS ORDERED: HYDROMORPHONE HCL 0.5 MG/ 0.5 ML SYRINGE (J1170 PER 1) IV PRN (13:50)
[2021-06-08] MEDS ORDERED: LR 1,000 ML IV SCH (13:50)
[2021-06-08 14:10] VITALS: BP 133/72
== END 2021-06-08 14:30 | disposition home or self-care (01) ==
LOC: M SDC 09:16
PROVIDERS: ATTEND Urology
DX: N13.5 Crossing vessel and stricture of ureter without hydronephrosis (principal); G40.409 Other generalized epilepsy and epileptic syndromes, not intractable, without status epilepticus; I11.9 Hypertensive heart disease without heart failure; I25.10 Atherosclerotic heart disease of native coronary artery without angina pectoris; E11.42 Type 2 diabetes mellitus with diabetic polyneuropathy; E78.00 Pure hypercholesterolemia, unspecified; Z99.3 Dependence on wheelchair; F17.210 Nicotine dependence, cigarettes, uncomplicated; Z87.440 Personal history of urinary (tract) infections; Z88.8 Allergy status to other drugs, medicaments and biological substances; Z79.899 Other long term (current) drug therapy; Z79.82 Long term (current) use of aspirin; Z79.84 Long term (current) use of oral hypoglycemic drugs; Z79.4 Long term (current) use of insulin
CPT/HCPCS: 52332; 52351; 74420; C1769; C2617; J0131; J0744; J1100; J2250; J2405; J3010; Q9961

== ENCOUNTER 2022-12-08 11:35 | Emergency (ER) | payer MEDICARE ==
[~2022-12-08] VITALS: Ht 177.8 cm; Wt 93.6 kg
[~2022-12-08 11:35] MED LIST changes: +BACT800T5 PO; -CIPROFLOXACIN 400 MG in IV 1 EA IV ONE; -D31000TA2 PO; +HYDR-3713 PO; -LR 1,000 ML IV ONE; +POTA-150 PO; -POTA10TA17 PO; +PYRI1TAB5 PO; +VITA100093 PO
[2022-12-08 14:13] VITALS: BP 132/60; TEMP 96.3; O2SAT 96
== END 2022-12-08 14:38 | disposition home or self-care (01) ==
LOC: M ED 11:35
DX: R82.998 Other abnormal findings in urine (principal); E11.40 Type 2 diabetes mellitus with diabetic neuropathy, unspecified; I10 Essential (primary) hypertension; E78.5 Hyperlipidemia, unspecified; R56.9 Unspecified convulsions; Z86.718 Personal history of other venous thrombosis and embolism; F17.200 Nicotine dependence, unspecified, uncomplicated; Z88.8 Allergy status to other drugs, medicaments and biological substances; Z79.899 Other long term (current) drug therapy; Z79.84 Long term (current) use of oral hypoglycemic drugs; Z79.4 Long term (current) use of insulin

== ENCOUNTER 2023-01-09 11:19 | Inpatient (IN) | payer MEDICARE ==
[~2023-01-09] VITALS: Ht 180.3 cm; Wt 88.2 kg
[2023-01-09] MEDS ORDERED: VANCOMYCIN HCL 1,750 MG in NS 250 ML IV ONE (11:45)
[2023-01-09] MEDS ORDERED: VANCOMYCIN HCL 1,000 MG, VIAL MATE ADAPTER 1 EACH in D5W 250 ML IV ONE (12:00)
[2023-01-09 12:08] LABS: BASO # 0.1 10^3/uL (0.0-0.2); BASO % 0.6 % (0.0-1.0); EOS % 0.1 % (0.0-3.0); HEMATOCRIT 39.7 % (42.0-52.0); LYMPH # 2.8 10^3/uL (1.5-5.0); LYMPH % 32.4 % (24.0-44.0); MEAN CORPUSCULAR HEMOGLOBIN 31.6 pg (27.0-33.0); MEAN CORPUSCULAR HGB CONC 35.3 g/dl (32.0-36.5); MEAN CORPUSCULAR VOLUME 89.6 fl (80.0-96.0); MONO # 0.6 10^3/uL (0.0-0.8); MONO % 6.5 % (2.0-8.0); NEUTROPHILS # 5.2 10^3/uL (1.5-8.5); NEUTROPHILS % 60.1 % (36.0-66.0); PLATELET COUNT, AUTOMATED 330 10^3/uL (150-450); RED BLOOD COUNT 4.43 10^6/uL (4.30-6.10); WHITE BLOOD COUNT 8.6 10^3/uL (4.0-10.0)
[2023-01-09 12:24] LABS: INR 1.01; PROTHROMBIN TIME 13.5 SECONDS (12.5-14.5)
[2023-01-09 12:34] LABS: ERYTHROCYTE SEDIMENTATION RATE 58 mm/hr (0-20)
[2023-01-09 12:40] LABS: ALBUMIN 3.7 G/DL (3.2-5.2); ALKALINE PHOSPHATASE 145 U/L (46-116); ALT/SGPT 24 U/L (7.0-40); AST/SGOT < 8 U/L (<34); BILIRUBIN,DIRECT 0.1 MG/DL (<0.4); BILIRUBIN,TOTAL 0.4 MG/DL (0.3-1.2); BLOOD UREA NITROGEN 41 MG/DL (9-23); CALCIUM LEVEL 9.5 MG/DL (8.3-10.6); CARBON DIOXIDE LEVEL 24 MMOL/L (20-31); CHLORIDE LEVEL 98 MMOL/L (98-107); CREATININE FOR GFR 1.21 MG/DL (0.70-1.30); GLOMERULAR FILTRATION RATE > 60.0 (>49); GLUCOSE, FASTING 226 MG/DL (74-106); POTASSIUM SERUM 4.4 MMOL/L (3.5-5.1); SODIUM LEVEL 131 MMOL/L (136-145); TOTAL PROTEIN 7.3 G/DL (5.7-8.2)
[2023-01-09] MEDS ORDERED: VANCOMYCIN HCL 750 MG, VIAL MATE ADAPTER 1 EACH in D5W 250 ML IV ONE (13:00)
[2023-01-09] MEDS ORDERED: MED REC IN PROGRESS XX SCH (13:15)
[2023-01-09] MEDS ORDERED: GLUCAGON INJ 1MG VIAL SC PRN (14:05)
[2023-01-09] MEDS ORDERED: MOM 30ML SUSPENSION UDC PO PRN (14:05)
[2023-01-09] MEDS ORDERED: GLUCOSE 4GM CHEW TABLET PO PRN (14:05)
[2023-01-09] MEDS ORDERED: DEXTROSE 50% 50ML SYRINGE IV PRN (14:05)
[2023-01-09] MEDS ORDERED: CYCL10TA20 PO (14:15)
[2023-01-09] MEDS ORDERED: ATOR80TA59 PO (14:15)
[2023-01-09] MEDS ORDERED: VANCOMYCIN HCL 1,000 MG, VIAL MATE ADAPTER 1 EACH in D5W 250 ML IV SCH (14:20)
[2023-01-09] MEDS ORDERED: DEXT4TAB15 PO (14:25)
[2023-01-09] MEDS ORDERED: VENL37.52 PO (14:25)
[2023-01-09] MEDS ORDERED: ASPI1TAB22 PO (14:25)
[2023-01-09] MEDS ORDERED: FURO20TA2 PO (14:25)
[2023-01-09] MEDS ORDERED: HOME MED LIST COMPLETE! XX SCH (14:30)
[2023-01-09] MEDS: PERCOCET 5MG/325MG TAB PO PRN ×2 (15:31→18:27)
[2023-01-09] MEDS ORDERED: ISOVUE-370 76% 100ML VIAL As Ordered ONE (15:46)
[2023-01-09 15:54] LABS: HEMOGLOBIN A1c 5.2 % (4.0-6.0)
[2023-01-09] MEDS: INSULIN LISPRO (NovoLOG) PER UNIT SC SCH ×2 (17:30→21:00)
[2023-01-09 17:55] VITALS: BP 148/68; TEMP 97.5; O2SAT 99
[2023-01-09] MEDS ORDERED: INSULIN LISPRO (NovoLOG) PER UNIT SC SCH (18:00)
[2023-01-09] MEDS: CYCLOBENZAPRINE 10MG TABLET PO PRN (18:26)
[2023-01-09] MEDS: busPIRone 10 MG TAB PO SCH ×2 (18:26→21:19)
[2023-01-09] MEDS: GABAPENTIN 300 MG CAP PO SCH ×2 (18:26→21:19)
[2023-01-09] MEDS: NS 1,000 ML IV SCH (18:30)
[2023-01-09] MEDS: VANCOMYCIN HCL 750 MG, VIAL MATE ADAPTER 1 EACH in D5W 250 ML IV SCH (21:19)
[2023-01-09] MEDS: levETIRAcetam 250MG TABLET (KEPPRA) PO SCH (21:20)
[2023-01-09 21:22] VITALS: BP 151/68; TEMP 97.3; O2SAT 97
[2023-01-10 05:53] VITALS: BP 112/50; TEMP 97.9; O2SAT 96
[2023-01-10 06:08] LABS: HEMATOCRIT 38.4 % (42.0-52.0); HEMOGLOBIN 13.4 g/dl (13.5-17.5); MEAN CORPUSCULAR HEMOGLOBIN 31.5 pg (27.0-33.0); MEAN CORPUSCULAR HGB CONC 34.9 g/dl (32.0-36.5); MEAN CORPUSCULAR VOLUME 90.4 fl (80.0-96.0); PLATELET COUNT, AUTOMATED 310 10^3/uL (150-450); RED BLOOD COUNT 4.25 10^6/uL (4.30-6.10); WHITE BLOOD COUNT 8.2 10^3/uL (4.0-10.0)
[2023-01-10 06:31] LABS: PROCALCITONIN 0.07 ng/ml
[2023-01-10 06:38] LABS: ALBUMIN 3.3 G/DL (3.2-5.2); ALKALINE PHOSPHATASE 132 U/L (46-116); ALT/SGPT 22 U/L (7.0-40); AST/SGOT 17 U/L (<34); BILIRUBIN,TOTAL 0.3 MG/DL (0.3-1.2); BLOOD UREA NITROGEN 35 MG/DL (9-23); CALCIUM LEVEL 8.9 MG/DL (8.3-10.6); CARBON DIOXIDE LEVEL 26 MMOL/L (20-31); CHLORIDE LEVEL 105 MMOL/L (98-107); CREATININE FOR GFR 1.09 MG/DL (0.70-1.30); GLOMERULAR FILTRATION RATE > 60.0 (>49); GLUCOSE, FASTING 113 MG/DL (74-106); MAGNESIUM LEVEL 1.7 MG/DL (1.8-2.4); POTASSIUM SERUM 4.3 MMOL/L (3.5-5.1); SODIUM LEVEL 138 MMOL/L (136-145); TOTAL PROTEIN 6.5 G/DL (5.7-8.2)
[2023-01-10] MEDS: INSULIN LISPRO (NovoLOG) PER UNIT SC SCH ×4 (07:30→21:45)
[2023-01-10] MEDS ORDERED: MAG SULF 1GM/100ML (MAG RUN) 1 GM in IV 1 EA IV ONE (08:00)
[2023-01-10] MEDS: NS 1,000 ML IV SCH (08:05)
[2023-01-10] MEDS: lisinopriL 40MG TAB PO SCH (08:56)
[2023-01-10] MEDS: VENLAFAXINE **XR** 37.5 MG CAPSULE PO SCH (08:57)
[2023-01-10] MEDS: FENOFIBRATE 145MG TABLET (TRICOR) PO SCH (08:57)
[2023-01-10] MEDS: ATORVASTATIN 20 MG TAB PO SCH (08:57)
[2023-01-10] MEDS: levETIRAcetam 250MG TABLET (KEPPRA) PO SCH ×2 (08:57→20:33)
[2023-01-10] MEDS: busPIRone 10 MG TAB PO SCH ×3 (08:58→20:33)
[2023-01-10] MEDS: GABAPENTIN 300 MG CAP PO SCH ×3 (08:58→20:33)
[2023-01-10] MEDS ORDERED: lisinopriL 40MG TAB PO SCH (09:00)
[2023-01-10] MEDS: VANCOMYCIN HCL 750 MG, VIAL MATE ADAPTER 1 EACH in D5W 250 ML IV SCH ×2 (09:00→20:34)
[2023-01-10] MEDS: ASPIRIN 325 MG TAB PO SCH (09:00)
[2023-01-10] MEDS: ENOXAPARIN 40MG/0.4ML SYRINGE (J1650 PER 10MG) SC SCH (09:00)
[2023-01-10] MEDS ORDERED: NICOTINE 14 MG/24 HR TRANSDERMAL TD PRN (10:45)
[2023-01-10] MEDS: CYCLOBENZAPRINE 10MG TABLET PO PRN (12:20)
[2023-01-10] MEDS: PERCOCET 5MG/325MG TAB PO PRN (12:21)
[2023-01-10 14:00] VITALS: BP 112/62; TEMP 97.3; O2SAT 97
[2023-01-11] MEDS: CYCLOBENZAPRINE 10MG TABLET PO PRN ×3 (02:17→21:07)
[2023-01-11 06:00] VITALS: BP 119/55; TEMP 98.6; O2SAT 98
[2023-01-11 06:32] LABS: HEMATOCRIT 37.7 % (42.0-52.0); HEMOGLOBIN 12.9 g/dl (13.5-17.5); MEAN CORPUSCULAR HEMOGLOBIN 31.2 pg (27.0-33.0); MEAN CORPUSCULAR HGB CONC 34.2 g/dl (32.0-36.5); MEAN CORPUSCULAR VOLUME 91.3 fl (80.0-96.0); PLATELET COUNT, AUTOMATED 307 10^3/uL (150-450); RED BLOOD COUNT 4.13 10^6/uL (4.30-6.10); WHITE BLOOD COUNT 6.3 10^3/uL (4.0-10.0)
[2023-01-11 07:07] LABS: ALBUMIN 3.2 G/DL (3.2-5.2); ALKALINE PHOSPHATASE 139 U/L (46-116); ALT/SGPT 23 U/L (7.0-40); AST/SGOT 11 U/L (<34); BILIRUBIN,TOTAL 0.3 MG/DL (0.3-1.2); BLOOD UREA NITROGEN 31 MG/DL (9-23); CALCIUM LEVEL 9.5 MG/DL (8.3-10.6); CARBON DIOXIDE LEVEL 26 MMOL/L (20-31); CHLORIDE LEVEL 104 MMOL/L (98-107); CREATININE FOR GFR 1.01 MG/DL (0.70-1.30); GLOMERULAR FILTRATION RATE > 60.0 (>49); GLUCOSE, FASTING 244 MG/DL (74-106); MAGNESIUM LEVEL 1.7 MG/DL (1.8-2.4); POTASSIUM SERUM 4.9 MMOL/L (3.5-5.1); SODIUM LEVEL 136 MMOL/L (136-145); TOTAL PROTEIN 6.6 G/DL (5.7-8.2)
[2023-01-11 07:22] LABS: PROCALCITONIN 0.05 ng/ml
[2023-01-11] MEDS ORDERED: MAG SULF 1GM/100ML (MAG RUN) 1 GM in IV 1 EA IV ONE (08:00)
[2023-01-11] MEDS: ATORVASTATIN 20 MG TAB PO SCH (08:26)
[2023-01-11] MEDS: VENLAFAXINE **XR** 37.5 MG CAPSULE PO SCH (08:26)
[2023-01-11] MEDS: INSULIN LISPRO (NovoLOG) PER UNIT SC SCH ×4 (08:26→21:08)
[2023-01-11] MEDS: levETIRAcetam 250MG TABLET (KEPPRA) PO SCH ×2 (08:26→21:08)
[2023-01-11] MEDS: FENOFIBRATE 145MG TABLET (TRICOR) PO SCH (08:27)
[2023-01-11] MEDS: GABAPENTIN 300 MG CAP PO SCH ×3 (08:27→21:07)
[2023-01-11] MEDS: busPIRone 10 MG TAB PO SCH ×3 (08:27→21:07)
[2023-01-11] MEDS: ENOXAPARIN 40MG/0.4ML SYRINGE (J1650 PER 10MG) SC SCH (08:27)
[2023-01-11] MEDS: ASPIRIN 325 MG TAB PO SCH (08:27)
[2023-01-11] MEDS: lisinopriL 40MG TAB PO SCH (08:29)
[2023-01-11 09:00] VITALS: BP 130/60; TEMP 97.7; O2SAT 98
[2023-01-11] MEDS: VANCOMYCIN HCL 750 MG, VIAL MATE ADAPTER 1 EACH in D5W 250 ML IV SCH (09:49)
[2023-01-11 14:00] VITALS: BP 140/60; TEMP 97.7; O2SAT 98
[2023-01-11] MEDS ORDERED: LEVEMIR (INSULIN DETEMIR) 1 UNITS/0.01ML SC SCH (21:00)
[2023-01-11] MEDS: VANCOMYCIN HCL 1,000 MG, VIAL MATE ADAPTER 1 EACH in D5W 250 ML IV SCH (21:09)
[2023-01-11 22:00] VITALS: BP 152/72; TEMP 98.1; O2SAT 98
[2023-01-12] MEDS: PERCOCET 5MG/325MG TAB PO PRN ×2 (03:58→21:33)
[2023-01-12 06:00] VITALS: BP 140/58; TEMP 97.9; O2SAT 96
[2023-01-12 06:38] LABS: HEMATOCRIT 37.9 % (42.0-52.0); MEAN CORPUSCULAR HGB CONC 34.3 g/dl (32.0-36.5); MEAN CORPUSCULAR VOLUME 90.5 fl (80.0-96.0); PLATELET COUNT, AUTOMATED 311 10^3/uL (150-450); RED BLOOD COUNT 4.19 10^6/uL (4.30-6.10)
[2023-01-12 07:15] LABS: PROCALCITONIN <0.04 ng/ml
[2023-01-12 07:16] LABS: ALBUMIN 3.4 G/DL (3.2-5.2); ALKALINE PHOSPHATASE 138 U/L (46-116); ALT/SGPT 27 U/L (7.0-40); AST/SGOT 14 U/L (<34); BILIRUBIN,TOTAL 0.3 MG/DL (0.3-1.2); BLOOD UREA NITROGEN 27 MG/DL (9-23); CALCIUM LEVEL 10.4 MG/DL (8.3-10.6); CARBON DIOXIDE LEVEL 26 MMOL/L (20-31); CHLORIDE LEVEL 105 MMOL/L (98-107); CREATININE FOR GFR 0.94 MG/DL (0.70-1.30); GLOMERULAR FILTRATION RATE > 60.0 (>49); GLUCOSE, FASTING 220 MG/DL (74-106); MAGNESIUM LEVEL 1.5 MG/DL (1.8-2.4); POTASSIUM SERUM 5.6 MMOL/L (3.5-5.1); SODIUM LEVEL 139 MMOL/L (136-145); TOTAL PROTEIN 7.1 G/DL (5.7-8.2)
[2023-01-12] MEDS ORDERED: LEVEMIR (INSULIN DETEMIR) 1 UNITS/0.01ML SC SCH (09:00)
[2023-01-12] MEDS ORDERED: SOD POLYSTYRENE SULFONATE SUSP 15GM 60ML UD PO ONE (09:00)
[2023-01-12] MEDS: VENLAFAXINE **XR** 37.5 MG CAPSULE PO SCH (09:05)
[2023-01-12] MEDS: INSULIN LISPRO (NovoLOG) PER UNIT SC SCH ×4 (09:05→21:00)
[2023-01-12] MEDS: VANCOMYCIN HCL 1,000 MG, VIAL MATE ADAPTER 1 EACH in D5W 250 ML IV SCH ×2 (09:06→21:31)
[2023-01-12] MEDS: busPIRone 10 MG TAB PO SCH ×3 (09:06→21:32)
[2023-01-12] MEDS: FENOFIBRATE 145MG TABLET (TRICOR) PO SCH (09:06)
[2023-01-12] MEDS: ASPIRIN 325 MG TAB PO SCH (09:06)
[2023-01-12] MEDS: ENOXAPARIN 40MG/0.4ML SYRINGE (J1650 PER 10MG) SC SCH (09:06)
[2023-01-12] MEDS: levETIRAcetam 250MG TABLET (KEPPRA) PO SCH ×2 (09:07→21:33)
[2023-01-12] MEDS: GABAPENTIN 300 MG CAP PO SCH ×3 (09:07→21:33)
[2023-01-12] MEDS: ATORVASTATIN 20 MG TAB PO SCH (09:07)
[2023-01-12] MEDS: MAG SULF 1GM/100ML (MAG RUN) 1 GM in IV 1 EA IV SCH ×3 (10:38→12:59)
[2023-01-12 14:00] VITALS: BP 137/59; TEMP 98.1; O2SAT 97
[2023-01-12 20:46] VITALS: BP 156/62; TEMP 97.9; O2SAT 98
[2023-01-12] MEDS: CYCLOBENZAPRINE 10MG TABLET PO PRN (21:32)
[2023-01-12] MEDS: LEVEMIR (INSULIN DETEMIR) 1 UNITS/0.01ML SC SCH (21:32)
[2023-01-13 05:35] VITALS: BP 108/60; TEMP 97.9; O2SAT 95
[2023-01-13 06:22] LABS: HEMATOCRIT 37.3 % (42.0-52.0); HEMOGLOBIN 12.8 g/dl (13.5-17.5); MEAN CORPUSCULAR HEMOGLOBIN 30.8 pg (27.0-33.0); MEAN CORPUSCULAR HGB CONC 34.3 g/dl (32.0-36.5); MEAN CORPUSCULAR VOLUME 89.7 fl (80.0-96.0); PLATELET COUNT, AUTOMATED 286 10^3/uL (150-450); RED BLOOD COUNT 4.16 10^6/uL (4.30-6.10); WHITE BLOOD COUNT 6.7 10^3/uL (4.0-10.0)
[2023-01-13 06:55] LABS: PROCALCITONIN <0.04 ng/ml
[2023-01-13 06:57] LABS: ALBUMIN 3.1 G/DL (3.2-5.2); ALKALINE PHOSPHATASE 126 U/L (46-116); ALT/SGPT 30 U/L (7.0-40); AST/SGOT 16 U/L (<34); BILIRUBIN,TOTAL 0.3 MG/DL (0.3-1.2); BLOOD UREA NITROGEN 21 MG/DL (9-23); CALCIUM LEVEL 9.3 MG/DL (8.3-10.6); CARBON DIOXIDE LEVEL 25 MMOL/L (20-31); CHLORIDE LEVEL 105 MMOL/L (98-107); CREATININE FOR GFR 0.83 MG/DL (0.70-1.30); GLOMERULAR FILTRATION RATE > 60.0 (>49); GLUCOSE, FASTING 140 MG/DL (74-106); MAGNESIUM LEVEL 1.4 MG/DL (1.8-2.4); POTASSIUM SERUM 4.5 MMOL/L (3.5-5.1); SODIUM LEVEL 139 MMOL/L (136-145); TOTAL PROTEIN 6.5 G/DL (5.7-8.2)
[2023-01-13] MEDS: INSULIN LISPRO (NovoLOG) PER UNIT SC SCH ×4 (07:30→21:00)
[2023-01-13] MEDS: MAG SULF 1GM/100ML (MAG RUN) 1 GM in IV 1 EA IV SCH ×6 (08:00→18:59)
[2023-01-13] MEDS: levETIRAcetam 250MG TABLET (KEPPRA) PO SCH ×2 (08:02→20:51)
[2023-01-13] MEDS: ASPIRIN 325 MG TAB PO SCH (08:02)
[2023-01-13] MEDS: FENOFIBRATE 145MG TABLET (TRICOR) PO SCH (08:02)
[2023-01-13] MEDS: ATORVASTATIN 20 MG TAB PO SCH (08:02)
[2023-01-13] MEDS: busPIRone 10 MG TAB PO SCH ×3 (08:02→20:51)
[2023-01-13] MEDS: GABAPENTIN 300 MG CAP PO SCH ×3 (08:02→20:52)
[2023-01-13] MEDS: CYCLOBENZAPRINE 10MG TABLET PO PRN ×2 (08:03→16:45)
[2023-01-13] MEDS: LEVEMIR (INSULIN DETEMIR) 1 UNITS/0.01ML SC SCH ×2 (08:05→22:55)
[2023-01-13] MEDS: PERCOCET 5MG/325MG TAB PO PRN ×3 (08:09→20:52)
[2023-01-13] MEDS: ENOXAPARIN 40MG/0.4ML SYRINGE (J1650 PER 10MG) SC SCH (09:00)
[2023-01-13] MEDS: VENLAFAXINE **XR** 37.5 MG CAPSULE PO SCH (10:16)
[2023-01-13] MEDS: VANCOMYCIN HCL 1,000 MG, VIAL MATE ADAPTER 1 EACH in D5W 250 ML IV SCH (10:16)
[2023-01-13] MEDS: MAGNESIUM OXIDE 400MG TAB (MAG-OX) PO SCH ×2 (10:28→20:51)
[2023-01-13] MEDS ORDERED: fentaNYL 100 MCG/2 ML INJECTION As Ordered ONE ×2 (12:35→15:02)
[2023-01-13] MEDS ORDERED: HEPARIN 1,000UNITS/ML 10ML VIAL (FOR RADIOLOGY & DIALYSIS ONLY) As Ordered ONE (12:35)
[2023-01-13] MEDS ORDERED: LIDOCAINE 1% MDV 20ML VIAL As Ordered ONE (12:35)
[2023-01-13] MEDS ORDERED: ISOVUE-300 61% 100ML VIAL As Ordered ONE (12:35)
[2023-01-13] MEDS ORDERED: MIDAZOLAM INJ 2MG/2ML VIAL As Ordered ONE (12:35)
[2023-01-13] MEDS ORDERED: CLOPIDOGREL 75 MG TAB As Ordered ONE (15:54)
[2023-01-13] MEDS ORDERED: CLOPIDOGREL 75 MG TAB PO ONE (16:00)
[2023-01-13 18:00] VITALS: BP 144/89; TEMP 97.7; O2SAT 99
[2023-01-13] MEDS: CEPHALEXIN 500 MG CAP PO SCH ×2 (18:02→20:52)
[2023-01-13 21:00] VITALS: BP 133/63; TEMP 98.1; O2SAT 98
[2023-01-14] MEDS ORDERED: NS 1,000 ML IV SCH (01:40)
[2023-01-14 05:09] VITALS: BP 122/62; TEMP 97.9; O2SAT 99
[2023-01-14 05:50] LABS: HEMATOCRIT 35.3 % (42.0-52.0); MEAN CORPUSCULAR HEMOGLOBIN 30.7 pg (27.0-33.0); MEAN CORPUSCULAR VOLUME 90.3 fl (80.0-96.0); PLATELET COUNT, AUTOMATED 265 10^3/uL (150-450); RED BLOOD COUNT 3.91 10^6/uL (4.30-6.10); WHITE BLOOD COUNT 7.7 10^3/uL (4.0-10.0)
[2023-01-14 06:11] LABS: ALBUMIN 3.2 G/DL (3.2-5.2); ALKALINE PHOSPHATASE 136 U/L (46-116); ALT/SGPT 32 U/L (7.0-40); AST/SGOT 18 U/L (<34); BILIRUBIN,TOTAL 0.3 MG/DL (0.3-1.2); BLOOD UREA NITROGEN 20 MG/DL (9-23); CALCIUM LEVEL 8.7 MG/DL (8.3-10.6); CARBON DIOXIDE LEVEL 24 MMOL/L (20-31); CHLORIDE LEVEL 103 MMOL/L (98-107); GLOMERULAR FILTRATION RATE > 60.0 (>49); GLUCOSE, FASTING 199 MG/DL (74-106); MAGNESIUM LEVEL 1.7 MG/DL (1.8-2.4); POTASSIUM SERUM 4.3 MMOL/L (3.5-5.1); SODIUM LEVEL 136 MMOL/L (136-145); TOTAL PROTEIN 6.5 G/DL (5.7-8.2)
[2023-01-14 06:16] LABS: PROCALCITONIN 0.06 ng/ml
[2023-01-14] MEDS: PERCOCET 5MG/325MG TAB PO PRN (06:53)
[2023-01-14] MEDS ORDERED: MAG SULF 1GM/100ML (MAG RUN) 1 GM in IV 1 EA IV ONE (07:30)
[2023-01-14] MEDS: ASPIRIN 325 MG TAB PO SCH (08:29)
[2023-01-14] MEDS: ENOXAPARIN 40MG/0.4ML SYRINGE (J1650 PER 10MG) SC SCH (08:29)
[2023-01-14] MEDS: INSULIN LISPRO (NovoLOG) PER UNIT SC SCH ×2 (08:29→12:13)
[2023-01-14] MEDS: LEVEMIR (INSULIN DETEMIR) 1 UNITS/0.01ML SC SCH (08:29)
[2023-01-14] MEDS: MAGNESIUM OXIDE 400MG TAB (MAG-OX) PO SCH (08:30)
[2023-01-14] MEDS: GABAPENTIN 300 MG CAP PO SCH (08:30)
[2023-01-14] MEDS: CEPHALEXIN 500 MG CAP PO SCH ×2 (08:30→12:13)
[2023-01-14] MEDS: FENOFIBRATE 145MG TABLET (TRICOR) PO SCH (08:30)
[2023-01-14] MEDS: levETIRAcetam 250MG TABLET (KEPPRA) PO SCH (08:30)
[2023-01-14] MEDS: busPIRone 10 MG TAB PO SCH (08:30)
[2023-01-14] MEDS: ATORVASTATIN 20 MG TAB PO SCH (08:30)
[2023-01-14] MEDS: VENLAFAXINE **XR** 37.5 MG CAPSULE PO SCH (08:32)
[2023-01-14] MEDS ORDERED: CLOPIDOGREL 75 MG TAB PO SCH (09:00)
[2023-01-14] MEDS ORDERED: ASPI-424 PO (11:38)
[2023-01-14] MEDS ORDERED: CEPH500C PO (11:38)
[2023-01-14] MEDS ORDERED: MAGN400T2 PO (11:38)
[2023-01-14] MEDS ORDERED: LISI20TA33 PO (11:38)
[2023-01-14] MEDS ORDERED: CLOP75TA2 PO (11:38)
[2023-01-14] MEDS ORDERED: PERCOCET PO (11:38)
== END 2023-01-14 14:18 | disposition home or self-care (01) | DRG 271 ==
LOC: EDBD 11:19 → M ED 11:19 → M ED INP 14:15 → ENRESERV 17:07 → M MSPAV 17:58
PROVIDERS: ADMIT Internal Medicine; ATTEND Internal Medicine
PROC: 0JBQ0ZZ Excision of Right Foot Subcutaneous Tissue and Fascia, Open Approach (ICD-10-PCS; 2023-01-09)
PROC: B246ZZZ Ultrasonography of Right and Left Heart (ICD-10-PCS; 2023-01-12)
PROC: 047K3DZ Dilation of Right Femoral Artery with Intraluminal Device, Percutaneous Approach (ICD-10-PCS; 2023-01-13)
PROC: 047M3D1 Dilation of Right Popliteal Artery with Intraluminal Device, using Drug-Coated Balloon, Percutaneous Approach (ICD-10-PCS; 2023-01-13)
PROC: 047K3D1 Dilation of Right Femoral Artery with Intraluminal Device, using Drug-Coated Balloon, Percutaneous Approach (ICD-10-PCS; 2023-01-13)
PROC: 047H3D1 Dilation of Right External Iliac Artery with Intraluminal Device, using Drug-Coated Balloon, Percutaneous Approach (ICD-10-PCS; 2023-01-13)
PROC: 06CY3ZZ Extirpation of Matter from Lower Vein, Percutaneous Approach (ICD-10-PCS; principal; 2023-01-13 11:00)
DX: E11.51 Type 2 diabetes mellitus with diabetic peripheral angiopathy without gangrene (principal); I50.32 Chronic diastolic (congestive) heart failure; L03.115 Cellulitis of right lower limb; M86.171 Other acute osteomyelitis, right ankle and foot; E11.42 Type 2 diabetes mellitus with diabetic polyneuropathy; I11.0 Hypertensive heart disease with heart failure; E78.5 Hyperlipidemia, unspecified; G40.909 Epilepsy, unspecified, not intractable, without status epilepticus; M54.9 Dorsalgia, unspecified; G89.29 Other chronic pain; F17.200 Nicotine dependence, unspecified, uncomplicated; L97.519 Non-pressure chronic ulcer of other part of right foot with unspecified severity; E11.621 Type 2 diabetes mellitus with foot ulcer; F41.1 Generalized anxiety disorder; E83.42 Hypomagnesemia; E11.65 Type 2 diabetes mellitus with hyperglycemia; E87.5 Hyperkalemia; Z79.4 Long term (current) use of insulin; Z79.82 Long term (current) use of aspirin; Z79.899 Other long term (current) drug therapy; Z88.8 Allergy status to other drugs, medicaments and biological substances; Z98.62 Peripheral vascular angioplasty status; Z91.82 Personal history of military deployment